=== PATIENT | male | born 1960 | race Caucasian/White ===

== ENCOUNTER 2020-10-17 07:35 | Outpatient (REF) | payer BC, SELFPAY ==
[2020-10-17 11:23] LABS: MANUAL DIFF FLAG NO
[2020-10-17 11:32] LABS: Basophils Absolute Auto 0.1 X10*3/uL (0.0-0.2); Eosinophils Absolute Auto 0.3 X10*3/uL (0.0-0.4); Hematocrit 46.4 % (42-52); Hemoglobin 15.2 g/dl (14.0-18.0); Imm Gran Abs Auto 0.01 X10*3/uL (0.00-0.03); Imm Gran Pct Auto 0.2 % (0.0-0.4); Lymphocytes Absolute Auto 1.8 X10*3/uL (1.2-4.9); Lymphocytes Percent Auto 34.7 % (20-40); Mean Corpuscular HGB Conc 32.8 g/dl (31.0-36.0); Mean Corpuscular Hemoglobin 28.7 pg (27.0-33.0); Mean Corpuscular Volume 87.7 fL (80-98); Mean Platelet Volume 10.6 fL (9.4-12.4); Monocytes Absolute Auto 0.5 X10*3/uL (0.1-1.2); Monocytes Percent Auto 9.3 % (2-11); Neutrophils Absolute Auto 2.5 X10*3/uL (2.0-8.3); Neutrophils Percent Auto 49.8 % (45-73); Platelet Count 199 X10*3/uL (160-400); Red Blood Count 5.29 X10*6/uL (4.60-5.80); Red Cell Distribution Width 12.5 % (11.0-16.0)
[2020-10-17 11:52] LABS: Alanine Aminotransferase 22 U/L (0-40); Albumin Level 4.2 g/dL (3.5-5.0); Alkaline Phosphatase 99 U/L (39-117); Anion Gap 13 (12-20); Aspartate Amino Transferase 14 U/L (5-37); Bilirubin Total 0.6 mg/dL (0.0-1.0); Blood Urea Nitrogen 22 mg/dL (9-16); Carbon Dioxide 27 mmol/L (22-29); Chloride 104 mmol/L (96-108); Cholesterol 225 mg/dL; Estimated Glomerular Filt Rate 57; Glucose Fasting 128 mg/dL (60-99); HDL Cholesterol 40 mg/dL; LDL Cholesterol Calculated 125 mg/dl; Potassium 4.4 mmol/l (3.3-5.1); Sodium 140 mmol/L (135-145); Total Protein 6.9 g/dL (6.5-8.0); Triglycerides 301 mg/dL
[2020-10-17 12:04] LABS: Thyroid Stimulating Hormone 1.52 uIU/mL (0.32-4.0); Vitamin D 25-OH Total 28.7 ng/mL (>30)
== END 2020-10-17 07:36 | disposition home or self-care (01) ==
LOC: HO.HMGCLDS 07:35
PROVIDERS: PCP Internal Medicine; Visit Provider Internal Medicine
DX: Z00.00 Encounter for general adult medical examination without abnormal findings (principal); I10 Essential (primary) hypertension; E78.00 Pure hypercholesterolemia, unspecified; E03.9 Hypothyroidism, unspecified; K21.9 Gastro-esophageal reflux disease without esophagitis; G43.109 Migraine with aura, not intractable, without status migrainosus; E55.9 Vitamin D deficiency, unspecified
CPT/HCPCS: 36415; 80053; 80061; 82306; 84443; 85025

== ENCOUNTER 2021-11-02 09:30 | Outpatient (REF) | payer BC, SELFPAY ==
[2021-11-02 09:59] LABS: MANUAL DIFF FLAG NO
[2021-11-02 11:54] LABS: Appearance Urine CLEAR; Color Urine YELLOW; Glucose Urine UA 250 MG/DL (NEG); Leukocyte Esterase Urine NEG (NEG); Nitrite Urine NEG (NEG); Specific Gravity - Urine >= 1.030 (1.005-1.025); Urine Blood NEG (NEG); Urine Ketones NEG (NEG); Urine Protein NEG (NEG-TRACE)
[2021-11-02 11:57] LABS: Basophils Percent Auto 0.9 % (0-2); Eosinophils Absolute Auto 0.2 X10*3/uL (0.0-0.4); Eosinophils Percent Auto 4.6 % (0-4); Hematocrit 45.7 % (42.0-52.0); Hemoglobin 15.2 g/dl (14.0-18.0); Imm Gran Abs Auto 0.01 X10*3/uL (0.00-0.03); Imm Gran Pct Auto 0.2 % (0.0-0.4); Lymphocytes Absolute Auto 1.5 X10*3/uL (1.2-4.9); Lymphocytes Percent Auto 32.1 % (20-40); Mean Corpuscular HGB Conc 33.3 g/dl (31.0-36.0); Mean Corpuscular Hemoglobin 28.8 pg (27.0-33.0); Mean Corpuscular Volume 86.6 fL (80.0-98.0); Mean Platelet Volume 10.5 fL (9.4-12.4); Monocytes Absolute Auto 0.4 X10*3/uL (0.1-1.2); Neutrophils Absolute Auto 2.4 x10*3/uL (2.0-8.3); Neutrophils Percent Auto 53.2 % (45-73); Platelet Count 215 X10*3/uL (160-400); Red Blood Count 5.28 X10*6/uL (4.60-5.80); Red Cell Distribution Width 12.4 % (11.0-16.0); White Blood Count 4.6 X10*3/uL (4.8-10.8)
[2021-11-02 12:20] LABS: Alanine Aminotransferase 21 U/L (0-40); Albumin Level 4.2 g/dL (3.5-5.0); Alkaline Phosphatase 115 U/L (39-117); Anion Gap 10 (12-20); Aspartate Amino Transferase 12 U/L (5-37); Bilirubin Total 0.9 mg/dL (0.0-1.0); Blood Urea Nitrogen 17 mg/dL (9-16); Calcium 9.4 mg/dL (8.4-10.2); Carbon Dioxide 30 mmol/L (22-29); Chloride 105 mmol/L (96-108); Cholesterol 221 mg/dL; Estimated Glomerular Filt Rate > 60; Glucose Fasting 146 mg/dL (60-99); HDL Cholesterol 37 mg/dL; LDL Cholesterol Calculated 150 mg/dl; Potassium 4.7 mmol/L (3.3-5.1); Sodium 140 mmol/L (135-145); Total Protein 6.7 g/dL (6.5-8.0); Triglycerides 172 mg/dL
[2021-11-02 12:44] LABS: PSA,Total (Free>4and<10) 0.22 ng/mL (0.00-4.00); Thyroid Stimulating Hormone 0.75 uIU/mL (0.32-4.0)
== END 2021-11-02 09:31 | disposition home or self-care (01) ==
LOC: HO.LAB 09:30
PROVIDERS: PCP Internal Medicine; Visit Provider Internal Medicine
DX: Z00.00 Encounter for general adult medical examination without abnormal findings (principal); I10 Essential (primary) hypertension; E03.9 Hypothyroidism, unspecified; E78.00 Pure hypercholesterolemia, unspecified; E55.9 Vitamin D deficiency, unspecified; K21.9 Gastro-esophageal reflux disease without esophagitis; G43.109 Migraine with aura, not intractable, without status migrainosus; Z12.5 Encounter for screening for malignant neoplasm of prostate
CPT/HCPCS: 36415; 80053; 80061; 81003; 82306; 84153; 84443; 85025

== ENCOUNTER 2022-05-31 10:02 | Outpatient (REF) | payer BC, SELFPAY ==
[2022-05-31 10:21] LABS: MANUAL DIFF FLAG NO
[2022-05-31 10:25] LABS: Basophils Percent Auto 0.9 % (0-2); Eosinophils Absolute Auto 0.3 X10*3/uL (0.0-0.4); Eosinophils Percent Auto 6.3 % (0-4); Hematocrit 43.2 % (42.0-52.0); Hemoglobin 14.7 g/dl (14.0-18.0); Imm Gran Abs Auto 0.01 X10*3/uL (0.00-0.03); Imm Gran Pct Auto 0.2 % (0.0-0.4); Lymphocytes Absolute Auto 1.2 X10*3/uL (1.2-4.9); Lymphocytes Percent Auto 27.1 % (20-40); Mean Corpuscular Hemoglobin 29.5 pg (27.0-33.0); Mean Corpuscular Volume 86.7 fL (80.0-98.0); Mean Platelet Volume 9.8 fL (9.4-12.4); Monocytes Absolute Auto 0.4 X10*3/uL (0.1-1.2); Monocytes Percent Auto 8.4 % (2-11); Neutrophils Absolute Auto 2.5 x10*3/uL (2.0-8.3); Neutrophils Percent Auto 57.1 % (45-73); Platelet Count 180 X10*3/uL (160-400); Red Blood Count 4.98 X10*6/uL (4.60-5.80); Red Cell Distribution Width 12.6 % (11.0-16.0); White Blood Count 4.4 X10*3/uL (4.8-10.8)
[2022-05-31 10:47] LABS: Estimated Average Glucose 131 mg/dL; Hemoglobin A1c % 6.2 %
[2022-05-31 10:53] LABS: Appearance Urine Clear; Color Urine Yellow; Glucose Urine UA Negative (Negative); Leukocyte Esterase Urine Negative (Negative); Nitrite Urine Negative (Negative); Urine Blood Negative (Negative); Urine Ketones Negative (Negative); Urine Protein Negative (Neg-Trace)
[2022-05-31 11:06] LABS: Alanine Aminotransferase 21 U/L (0-40); Albumin Level 4.2 g/dL (3.5-5.0); Alkaline Phosphatase 99 U/L (39-117); Anion Gap 15 (12-20); Aspartate Amino Transferase 17 U/L (5-37); Blood Urea Nitrogen 13 mg/dL (9-16); Calcium 8.9 mg/dL (8.4-10.2); Carbon Dioxide 27 mmol/L (22-29); Chloride 104 mmol/L (96-108); Cholesterol 192 mg/dL; Estimated Glomerular Filt Rate 60; Glucose Fasting 115 mg/dL (60-99); HDL Cholesterol 52 mg/dL; LDL Cholesterol Calculated 121 mg/dl; Potassium 4.2 mmol/L (3.3-5.1); Sodium 142 mmol/L (135-145); Total Protein 6.8 g/dL (6.5-8.0); Triglycerides 98 mg/dL
[2022-05-31 11:38] LABS: Creatinine Urine 52.39 mg/dL; Microalbumin Urine < 5.0 mg/L
[2022-05-31 12:05] LABS: Thyroid Stimulating Hormone 0.77 uIU/mL (0.32-4.0)
== END 2022-05-31 10:03 | disposition home or self-care (01) ==
LOC: HO.LAB 10:02
PROVIDERS: PCP Internal Medicine; Visit Provider Internal Medicine
DX: E74.39 Other disorders of intestinal carbohydrate absorption (principal); I10 Essential (primary) hypertension; E78.00 Pure hypercholesterolemia, unspecified; E03.9 Hypothyroidism, unspecified
CPT/HCPCS: 36415; 80053; 80061; 81003; 82043; 83036; 84443; 85025

== ENCOUNTER 2023-01-09 06:50 | Day surgery (SDC) | payer BC, SELFPAY ==
--- NOTE | 2023-01-08 09:49 | HO.ANESPROP2 ---
Documented by User: Adelina Oliveira NP 01/08/23 09:49 HPI - Anesthesia Eval Consult details Narrative: 62yo M for Colonoscopy PENDING SALE TO [facility] Past Medical History Medical History (Updated 01/08/23 @ 08:10 by Pao Chin) Abdominal pain Elevated cholesterol GERD (gastroesophageal reflux disease) Hypertension Hypothyroidism Migraine headache Plantar fasciitis Tubular adenoma Surgical History Surgical History (Updated 01/08/23 @ 08:10 by Pao Chin) H/O arthroscopy of knee H/O colonoscopy H/O endoscopy Social History Social History Patient Tobacco Use Status: Former Tobacco user Use of substances other than those prescribed or required for medical reasons: No Are you DNR?: No Advance Directives: No Advance Directives Information Provided: Yes Recently lost weight without trying: No Nutrition Risks: No Nutritional Risk Meds Allergies Allergy/AdvReac Type Severity Reaction Status Date / Time oxycodone [OXYCODONE] Allergy Unknown GI UPSET, Verified 01/09/23 07:18 stomach upset codeine AdvReac Unknown Verified 01/09/23 07:18 Home Medications Medication Instructions Recorded Confirmed Last Taken Type amitriptyline-chlordiazepoxide 1 tab PO DAILY 01/08/23 01/08/23 Unknown History 12.5 mg-5 mg tablet atorvastatin 40 mg tablet 40 mg PO DAILY 01/08/23 01/08/23 Unknown History levothyroxine 25 mcg tablet 25 mcg PO DAILY 01/08/23 01/08/23 Unknown History lisinopril 40 mg tablet 40 mg PO DAILY 01/08/23 01/08/23 Unknown History omeprazole 40 mg capsule,delayed 40 mg PO BID 01/08/23 01/08/23 Unknown History release propranolol 40 mg tablet 40 mg PO BID 01/08/23 01/08/23 Unknown History Exam Exam Date and Time: January 08, 2023 0949 Assessment and Plan Assessment Anesthesia Assessment: Chart Reviewed Documented by User: Gay Magaña MD 01/09/23 07:49 PENDING SALE TO [facility] Past Medical History Medical History (Updated 01/08/23 @ 08:10 by Pao Chin) Abdominal pain Elevated cholesterol GERD (gastroesophageal reflux disease) Hypertension Hypothyroidism Migraine headache Plantar fasciitis Tubular adenoma Family History Family history of problems with anesthesia: No Surgical History Surgical History (Updated 01/08/23 @ 08:10 by Pao Chin) H/O arthroscopy of knee H/O colonoscopy H/O endoscopy History of Problems with Anesthesia: No Social History Social History Patient Tobacco Use Status: Former Tobacco user Use of substances other than those prescribed or required for medical reasons: No Are you DNR?: No Advance Directives: No Advance Directives Information Provided: Yes Recently lost weight without trying: No Nutrition Risks: No Nutritional Risk Meds Allergies Allergy/AdvReac Type Severity Reaction Status Date / Time oxycodone [OXYCODONE] Allergy Unknown GI UPSET, Verified 01/09/23 07:18 stomach upset codeine AdvReac Unknown Verified 01/09/23 07:18 Home Medications Medication Instructions Recorded Confirmed Last Taken Type amitriptyline-chlordiazepoxide 1 tab PO DAILY 01/08/23 01/08/23 Unknown History 12.5 mg-5 mg tablet atorvastatin 40 mg tablet 40 mg PO DAILY 01/08/23 01/08/23 Unknown History levothyroxine 25 mcg tablet 25 mcg PO DAILY 01/08/23 01/08/23 Unknown History lisinopril 40 mg tablet 40 mg PO DAILY 01/08/23 01/08/23 Unknown History omeprazole 40 mg capsule,delayed 40 mg PO BID 01/08/23 01/08/23 Unknown History release propranolol 40 mg tablet 40 mg PO BID 01/08/23 01/08/23 Unknown History Exam Airway Mallampati Class: II TM Dist: >3cm Neck ROM: Full Heart: rrr Lungs: cta Assessment and Plan Assessment Anesthesia Assessment: Anesthesia Plan Discussed Final Anesthetic Review Family History of Problems with Anesthesia: No History of Problems with Anesthesia: No NPO: Yes ASA Class: II Final Preanesthetic Review: No Changes in Pt Med Stat, Meds/Allgs Chart Reviewed, Consent Obtained/Reviewed and Anes Risks/Benef Reviewed Patient Risk: Low Procedure Risk: Low Anesthetic Plan Anesthetic Plan: MAC: Disposition: Standard PACU
[2023-01-09 07:00] VITALS: BMI 29.5
[2023-01-09 07:11] VITALS: BP 133/89; PULSE 69; RESP 16; TEMP 36.2; O2SAT 96
[2023-01-09] MEDS: Lactated Ringers 1,000 ML 100 ML IVCONT (07:18)
--- NOTE | 2023-01-09 08:12 | MHC.SHP ---
Pre-Procedural Eval Section A Date of Service: 01/09/23 The patient is an INPATIENT: No Changes since office visit: Yes Cold of Flu in the past 2 weeks The History & Physical has been completed within 30 days and I have reviewed it.: No Section B Chief Complaint: screening Details of Present Illness: see H&P no changes Relevant Family History (Specify if Yes): No Relevant Social History: None Present Medications: None Medical History: No relevant PMH History of Previous Operations: No relevant previous surgery Allergies: Allergies Allergy/AdvReac Type Severity Reaction Status Date / Time oxycodone [OXYCODONE] Allergy Unknown GI UPSET, Verified 01/09/23 07:18 stomach upset codeine AdvReac Unknown Verified 01/09/23 07:18 Review of Systems Sugical H&P ROS: Negative: Constitution, Cardiovascular, Respiratory, Neurological, Psychiatric, Hem-Onc, Allergic/Immunologic, Gastrointestinal, Genitourinary, Musculoskeletal, Integumentary, Endocrine and Eyes/Ears/Nose/Throat Exam Surgical H&P Exam: Normal: HEENT, Normal: Heart, Normal: Lungs, Normal: Extremities, Normal: Abdomen, Normal: Skin and Normal: Neurological Plan Diagnosis/Plan: Unchanged I have reviewed the history and physical and performed a pertinent physical examination on my patient. No changes have occurred unless specified. Time Spent With Patient Time: Total time managing care of this patient today ____ minutes.
--- NOTE | 2023-01-09 08:45 | PM.OP ---
Brief Operative Note Date of Service: 01/09/23 Pre-op diagnosis: screening Post-op diagnosis: same Procedure: colonoscopy Surgeon: Daniel Barnett Was an Lead Setter used for this Procedure?: No Estimated blood loss (mL): 0 Pathology: none sent Condition: stable Disposition: PACU
[2023-01-09 08:46] VITALS: BP 99/59; PULSE 72; RESP 17; TEMP 36.1; O2SAT 97
[2023-01-09 09:01] VITALS: BP 119/79; PULSE 63; RESP 18; TEMP 36.6; O2SAT 98
--- NOTE | 2023-01-09 23:41 | OP_ITS ---
DATE OF SERVICE: 01/09/2023 SURGEON: Daniel Barnett MD INDICATIONS: Colon cancer screening. PREOPERATIVE DIAGNOSIS: POSTOPERATIVE DIAGNOSIS: PROCEDURE PERFORMED: Colonoscopy to the terminal ileum. ESTIMATED BLOOD LOSS: COMPLICATIONS: ANESTHESIA: Monitored anesthesia care. ASSISTANTS: SPECIMENS: DESCRIPTION OF PROCEDURE: A history and physical was performed. The risks and benefits of the procedure were explained to the patient. Informed consent was obtained. The patient was placed in the left lateral decubitus position. A digital rectal exam was performed and was found to be normal. The Olympus pediatric video colonoscope was introduced into the rectum and advanced to the cecum without difficulty. The cecum was identified by transillumination, palpation, and identification of ileocecal valve. Examination was performed. The scope was removed. He tolerated the procedure well and was returned to the recovery area in stable condition. FINDINGS: The terminal ileum was briefly examined and appeared normal. The quality of the prep was good. There was very minimal sigmoid diverticulosis. Retroflexed examination showed moderate-sized internal hemorrhoids. IMPRESSION: Normal screening colonoscopy. RECOMMENDATION: 1. Follow up as needed. 2. Repeat colonoscopy is recommended in 10 years for average risk individuals. MD JETT Krueger/GILSONL / [id number]
== END 2023-01-09 09:30 | disposition home or self-care (01) ==
PROVIDERS: PCP Internal Medicine; Visit Provider Internal Medicine Gastroenterology
PROC: 0DJD8ZZ Inspection of Lower Intestinal Tract, Via Natural or Artificial Opening Endoscopic (ICD-10-PCS; CPT 45378; principal; 2023-01-09 08:10)
DX: Z12.11 Encounter for screening for malignant neoplasm of colon (principal); Z86.010 Personal history of colon polyps; K57.30 Diverticulosis of large intestine without perforation or abscess without bleeding; K64.8 Other hemorrhoids; K21.9 Gastro-esophageal reflux disease without esophagitis; I10 Essential (primary) hypertension; E78.00 Pure hypercholesterolemia, unspecified; E03.9 Hypothyroidism, unspecified; G43.909 Migraine, unspecified, not intractable, without status migrainosus; Z79.899 Other long term (current) drug therapy; Z88.8 Allergy status to other drugs, medicaments and biological substances; Z87.891 Personal history of nicotine dependence
CPT/HCPCS: 45378

== ENCOUNTER 2024-08-17 10:06 | Outpatient (REF) | payer BC, SELFPAY ==
[2024-08-17 13:11] LABS: MANUAL DIFF FLAG NO
[2024-08-17 13:30] LABS: Basophils Absolute Auto 0.1 X10*3/uL (0.0-0.2); Basophils Percent Auto 1.2 % (0-2); Eosinophils Absolute Auto 0.2 X10*3/uL (0.0-0.4); Eosinophils Percent Auto 4.3 % (0-4); Hemoglobin 14.9 g/dl (14.0-18.0); Imm Gran Abs Auto 0.01 X10*3/uL (0.00-0.03); Imm Gran Pct Auto 0.2 % (0.0-0.4); Lymphocytes Absolute Auto 1.6 X10*3/uL (1.2-4.9); Lymphocytes Percent Auto 31.4 % (20-40); Mean Corpuscular HGB Conc 33.9 g/dl (31.0-36.0); Mean Corpuscular Hemoglobin 28.9 pg (27.0-33.0); Mean Corpuscular Volume 85.4 fL (80.0-98.0); Mean Platelet Volume 10.4 fL (9.4-12.4); Monocytes Absolute Auto 0.5 X10*3/uL (0.1-1.2); Monocytes Percent Auto 9.1 % (2-11); Neutrophils Absolute Auto 2.8 x10*3/uL (2.0-8.3); Neutrophils Percent Auto 53.8 % (45-73); Platelet Count 192 X10*3/uL (160-400); Red Blood Count 5.15 X10*6/uL (4.60-5.80); Red Cell Distribution Width 12.2 % (11.0-16.0); White Blood Count 5.2 X10*3/uL (4.8-10.8)
[2024-08-17 13:59] LABS: Alanine Aminotransferase 21 U/L (0-40); Alkaline Phosphatase 87 U/L (39-117); Anion Gap 8 (12-20); Aspartate Amino Transferase 16 U/L (5-37); Bilirubin Total 0.8 mg/dL (0.0-1.0); Blood Urea Nitrogen 20 mg/dL (9-16); Calcium 8.9 mg/dL (8.4-10.2); Carbon Dioxide 33 mmol/L (22-29); Chloride 103 mmol/L (96-108); Cholesterol 193 mg/dL (<200); Estimated Glomerular Filt Rate > 60; Glucose Fasting 160 mg/dL (60-99); HDL Cholesterol 38 mg/dL (>40); LDL Cholesterol Calculated 118 mg/dL (<100); Potassium 4.4 mmol/L (3.3-5.1); Sodium 140 mmol/L (135-145); Total Protein 6.6 g/dL (6.5-8.0); Triglycerides 185 mg/dL (<150)
[2024-08-17 14:02] LABS: PSA,Total (Free>4and<10) 0.33 ng/mL (0.00-4.00)
[2024-08-17 14:29] LABS: Thyroid Stimulating Hormone 1.48 uIU/mL (0.32-4.0); Vitamin D 25-OH Total 41.5 ng/mL (>30)
== END 2024-08-17 10:07 | disposition home or self-care (01) ==
LOC: HO.HMGCLDS 10:06
PROVIDERS: PCP Internal Medicine; Visit Provider Internal Medicine
DX: I10 Essential (primary) hypertension (principal); E78.00 Pure hypercholesterolemia, unspecified; E03.9 Hypothyroidism, unspecified; K21.9 Gastro-esophageal reflux disease without esophagitis; G43.109 Migraine with aura, not intractable, without status migrainosus; E55.9 Vitamin D deficiency, unspecified; Z12.5 Encounter for screening for malignant neoplasm of prostate
CPT/HCPCS: 36415; 80053; 80061; 82306; 84153; 84443; 85025

== ENCOUNTER 2024-11-23 09:20 | Outpatient (AMB) | payer BC, SELFPAY ==
--- NOTE | 2024-11-23 09:28 | MHC.PC.OV ---
Vital Signs 11/23/24 09:34 Height 5 ft 7.75 in Weight 199 lb BMI 30.5 BP 118/64 Blood Pressure Location Rt brachial Pulse 70 Pulse Source Pulse Oximeter Temp 97.0 F Pulse Oximetry (%) 96 Intake Visit Reasons: 3 month follow up Intake Note: no other issues Allergies oxycodone [OXYCODONE] Allergy (Unknown, Verified 11/23/24 10:05) GI UPSET, stomach upset codeine Adverse Reaction (Verified 11/23/24 10:05) Unknown Medication List - Last Reconciled 11/23/24 by Stephanie Slater PA-C aspirin (Adult Low Dose Aspirin) 81 mg PO DAILY atorvastatin 40 mg PO DAILY cholecalciferol (vitamin D3) 50 mcg PO DAILY divalproex 250 mg PO BID levothyroxine 25 mcg PO DAILY lisinopril 40 mg PO DAILY omeprazole 40 mg PO BID propranolol 40 mg PO BID rizatriptan 10 mg PO Q2-4H PRN verapamil 40 mg PO BID PFSH Medical History (Updated 11/23/24 @ 10:12 by Stephanie Slater PA-C) Obesity (BMI 30.0-34.9) Prediabetes Peyronie's disease Vitamin D deficiency Onychomycosis Carpal tunnel syndrome Deviated septum Mild hypercholesterolemia Abdominal pain GERD (gastroesophageal reflux disease) Plantar fasciitis Tubular adenoma Migraine headache Hypothyroidism Elevated cholesterol Hypertension Surgical History H/O arthroscopy of knee H/O endoscopy H/O colonoscopy (~01/09/23) Social History Patient Tobacco Use Status: Former Tobacco user Physical exam (Primary Care) Vital Signs: Last Vital Signs Temp 97.0 F 11/23/24 09:34 Pulse 70 11/23/24 09:34 BP 118/64 11/23/24 09:34 Pulse Ox 96 11/23/24 09:34 BP Goal 130/80 at Goal today BMI result Body Mass Index 30.5 BMI Assessment/Plan discussion: High BMI High, discussed plan: lifestyle, weight reduction, dietary, physical activity and alcohol moderation Tobacco/Smoking Status: Tobacco use Status Patient Tobacco Use Status Former Tobacco user 11/23/24 09:37 Coding Level of Care Code New Pt Level 4 (20999) Complex EM visit Add On G2211 Diagnoses Hypertension I10 Hypothyroidism E03.9 Mild hypercholesterolemia E78.00 Migraine headache G43.909 GERD (gastroesophageal reflux disease) K21.9 Vitamin D deficiency E55.9 Prediabetes R73.03 Obesity (BMI 30.0-34.9) E66.811 Assessment & Plan Assessment & Plan (1) Hypertension: Code(s): I10 - Essential (primary) hypertension Category: Medical Plan: Patient currently on baby aspirin 81 mg daily, atorvastatin 40 mg daily, lisinopril 40 mg daily, propranolol 40 mg p.o. b.i.d., verapamil 40 mg p.o. PID. BP Goal 130/80 at goal today. Will continue current regimen. Condition is chronic and stable continue to monitor. (2) Hypothyroidism: Code(s): E03.9 - Hypothyroidism, unspecified Category: Medical Plan: Patient currently on levothyroxine 125 mcg daily. Last TSH level on 08/17/2024 was normal range. Condition is chronic and stable continue to monitor. (3) Mild hypercholesterolemia: Code(s): E78.00 - Pure hypercholesterolemia, unspecified Category: Medical Plan: Patient currently on atorvastatin 40 mg. Goal LDL is 100 at this time. Last LDL on 08/17/2024 was 118. Patient declined increase in his atorvastatin reports that he will improve his diet and exercise regimen. At next visit if LDL remains to be of 100 will increase his atorvastatin at that time. Patient agreeable to this. Condition is chronic and stable continue to monitor. (4) Migraine headache: Code(s): G43.909 - Migraine, unspecified, not intractable, without status migrainosus Category: Medical Plan: Patient currently being followed by Dr. Godinez at [facility] neurologist. Being treated with p.r.n. Rizatriptan. Patient currently on Divalproex 250 mg p.o. b.i.d.. Patient also on propranolol 40 mg p.o. b.i.d.. Condition is chronic and stable continue to monitor. (5) GERD (gastroesophageal reflux disease): Code(s): K21.9 - Gastro-esophageal reflux disease without esophagitis Category: Medical Plan: Patient currently on omeprazole 40 mg b.i.d.. Condition is chronic and stable continue to monitor. (6) Vitamin D deficiency: Code(s): E55.9 - Vitamin D deficiency, unspecified Category: Medical Plan: Patient with a history of vitamin-D deficiency on 08/17/2024 vitamin-D level 41.5 in normal range. Patient to continue current regimen. Condition is chronic and stable continue to monitor. (7) Prediabetes: Code(s): R73.03 - Prediabetes Category: Medical Plan: Patient's A1c level 6.2 on 05/31/2022. Has not been repeated. Labs ordered today for patient to have done before his next appointment to assess diabetes. Patient reports he will improve his diet and exercise regimen. Condition is chronic and stable will continue to monitor. (8) Obesity (BMI 30.0-34.9): Code(s): E66.811 - Obesity, class 1 Category: Medical Plan: Patient will improve his diet and exercise regimen. Condition is chronic and stable continue to monitor. Plan Plan The patient will maintain his current regimen of prescribed medications, as essential hypertension, hyperlipidemia, and thyroid conditions are adequately controlled. Additional management for migraines includes adherence to Divalproex and PRN use of rizatriptan. Regular dietary adjustments have been suggested to manage elevated triglycerides and maintain controlled glucose levels, given prediabetic status. A detailed lab workup, including assessments for inflammation, renal and liver function, hemoglobin A1c, electrolyte balance, and vitamin levels, will be scheduled before the next follow-up. He is advised to remain vigilant regarding symptoms indicative of fluctuating glucose levels and seek early intervention if they develop. A six-month follow-up will focus on the outcomes of dietary changes and further adjustment of therapeutic interventions if needed. Orders: Orders C Reactive Protein Today Z00.00 - Encounter for general adult medical examination without abnormal findings Lipid Panel Today Z00.00 - Encounter for general adult medical examination without abnormal findings Liver Panel Today Z00.00 - Encounter for general adult medical examination without abnormal findings Magnesium Today Z00.00 - Encounter for general adult medical examination without abnormal findings Vitamin D 25-OH Total Today Z00.00 - Encounter for general adult medical examination without abnormal findings Complete Blood Count Auto Diff Today Z00.00 - Encounter for general adult medical examination without abnormal findings Comprehensive [place]. Panel Fast Today Z00.00 - Encounter for general adult medical examination without abnormal findings Hemoglobin A1c Today Z00.00 - Encounter for general adult medical examination without abnormal findings Vitamin B1 Today Z00.00 - Encounter for general adult medical examination without abnormal findings TSH reflex Free T4 Today Z00.00 - Encounter for general adult medical examination without abnormal findings Vitamin B12 and Folate Today Z00.00 - Encounter for general adult medical examination without abnormal findings Patient Instructions: Patient Instructions - Continue current medication regimen as prescribed. - Schedule and complete recommended blood work, fasting for 12 hours prior to testing. - Focus on dietary management to reduce triglyceride levels, specifically decreasing sugary and fatty foods. - Monitor for symptoms of elevated glucose such as increased thirst or frequent urination; contact the office for earlier assessment if these occur. - Return for a six-month follow-up or discuss telehealth alternatives if necessary. - Maintain awareness of migraine triggers and use prescribed triptan PRN. - Maintain a log of blood pressure readings to monitor control. Scribe Plan - Not visible on output: History of Present Illness The patient is a 64-year-old male presenting for a six-month follow-up appointment. His medical history is significant for essential hypertension, hyperlipidemia, vitamin D deficiency, migraines, hypothyroidism, GERD, and prediabetes. Medications include aspirin, atorvastatin, levothyroxine, omeprazole, propranolol, and Divalproex. He reports that the propranolol has been ineffective for migraines, although prescribed for both hypertension and migraine prophylaxis. The patient takes rizatriptan medication as needed for migraines. Recent labs indicate fasting glucose at 160 mg/dL and triglyceride levels are borderline elevated. He underwent a colonoscopy in 2022 with no significant findings and has normal PSA and thyroid function tests. The patient denies sleep disturbances or signs of sleep apnea and has stable blood pressure under current antihypertensive therapy. Review of Systems - Constitutional: Denies significant fatigue on awakening. - Genitourinary: Denies difficulty urinating, denies feeling of incomplete bladder emptying. - Musculoskeletal: Reports chronic knee pain. - Endocrine: Denies excessive thirst. Physical Exam Appearance: Alert. Oriented X3. No acute distress. Head: Normal external exam. Normocephalic. Atraumatic. Eyes: Pupils are equal, round, and reactive to light. Extraocular movements intact. Conjunctiva and sclera normal. Eyelids normal. Ears: External auditory canal normal. Tympanic membranes normal. Throat: Pharynx normal. Uvula midline. Moist mucous membranes. Neck: Normal inspection. Neck supple. Full range of motion. No adenopathy. Thyroid Normal. No meningeal signs. No neck mass noted. Cardiovascular: Normal heart rate and rhythm. Heart sound normal. No murmurs noted. Pulses normal throughout. Respiratory: No respiratory distress. Painless inspiration. Breath sounds normal. No wheezes/rales/rhonchi noted. Chest nontender. No accessory muscle usage noted or decreased air movement noted. Abdomen: Soft and nontender. Bowel sounds normal in all 4 quadrants. No distention noted. No organomegaly noted. No visible injury noted. Back: No costovertebral angle tenderness. Full range of motion noted. Skin: Skin warm and dry. Normal skin color. Normal skin turgor. No rashes/lesions/lacerations noted. Extremities: No lower extremity edema. Extremities exhibit normal range of motion. Extremities nontender. Chronic knee pain noted. Neuro: Oriented X 3. No motor deficit. No sensory deficit. Reflexes normal. Results - Labs: - Fasting Glucose: 160 mg/dL (2023) - A1c: 6.2% (2021) - Total Cholesterol: 193 mg/dL (2023) Patient was informed and verbally consented to the use of an ambient scribe for clinic note documentation during this visit. Discussion Notes I explained to the patient the importance of monitoring his blood glucose and lipid levels due to his prediabetic status and marginally elevated triglycerides. We discussed dietary interventions as the primary strategy for managing these conditions, and I emphasized the potential risks of progression to diabetes if left unaddressed. I assured the patient that his cholesterol levels are within target range while on atorvastatin, but further improvement can be achieved via lifestyle modifications. The importance of fasting before the next round of blood testing was underscored to ensure accurate results. I clarified the role of his medications, specifically highlighting the multi-purpose use of propranolol for both hypertension and migraines, albeit acknowledging the limited effect in migraine relief, and encouraged adherence to his migraine PRN medication. Follow-up options remain flexible, including the possibility of telehealth visits, should direct clinic appointments be challenging.
[2024-11-23 09:34] VITALS: BP 118/64; PULSE 70; TEMP 36.1; O2SAT 96; BMI 30.5
--- OUTSIDE RECORDS SUMMARY | 2024-11-23 10:30 | XMS_ITS | Patient Health Record ---
Author Organization Serge Harvey DO, FAC Address [address] [place] [id number] Care Team Providers Care Shrinker Name Role Phone WesSerge kasper Primary Care Provider [phone] ALLERGIES No Known Allergies RESULTS Component Value Reference Range Notes PSA,Total (Free>4and<10) Reviewed date:08/17/2024 02:34:59 PM Interpretation:Normal Performing Lab:[facility], [address] [place] [phone] Notes/Report: PSA,Total (Free>4and<10) 0.33 0.00-4.00 ng/mL A Free PSA was not performed: The percentage of Free PSA can be used to enhance the differentiation of prostate cancer from benign prostatic disease in subjects whose PSA levels are between 4.0 and 10.0 ng/mL. For subjects whose PSA levels are below 4.0 or above 10.0 ng/mL, the risk of prostate cancer is determined on the basis of the PSA alone. Therefore the % Free PSA is recommended only for those subjects whose PSA levels are between 4.0 and 10.0 ng/mL. PSA methodology: M[facility] [employer] i Chemiluminescent Microparticle Immunoassay (CMIA) Complete Blood Count Auto Di ff Reviewed date:08/17/2024 01:50:55 PM Interpretation:Normal Performing Lab:[facility], [address] [place] [phone] Notes/Report: White Blood Count 5.2 4.8-10.8 X10*3/uL Red Blood Count 5.15 4.60-5.80 X10*6/uL Hemoglobin 14.9 14.0-18.0 g/dl Hematocrit 44.0 42.0-52.0 % Mean Corpuscular Volume 85.4 80.0-98.0 fL Mean Corpuscular Hemoglobin 28.9 27.0-33.0 pg Mean Corpuscular HGB Conc 33.9 31.0-36.0 g/dl Red Cell Distribution Width 12.2 11.0-16.0 % Platelet Count 192 160-400 X10*3/uL Mean Platelet Volume 10.4 9.4-12.4 fL Neutrophils Percent Auto 53.8 45-73 % Imm Gran Pct Auto 0.2 0.0-0.4 % Lymphocytes Percent Auto 31.4 20-40 % Monocytes Percent Auto 9.1 2-11 % Eosinophils Percent Auto 4.3 0-4 % Basophils Percent Auto 1.2 0-2 % NRBC Pct Auto 0.0 0.0-0.2 /100WBC Neutrophils Absolute Auto 2.8 2.0-8.3 x10*3/u L Imm Gran Abs Auto 0.01 0.00-0.03 X10*3/uL Lymphocytes Absolute Auto 1.6 1.2-4.9 X10*3/u L Monocytes Absolute Auto 0.5 0.1-1.2 X10*3/uL Eosinophils Absolute Auto 0.2 0.0-0.4 X10*3/u L Basophils Absolute Auto 0.1 0.0-0.2 X10*3/uL NRBC Abs Auto 0.000 0.0-0.012 X10*3/uL Comprehensive [place]. Panel Fa st Reviewed date:08/17/2024 04:50:49 PM Interpretation:Abnormal Performing Lab:[facility], [address] [place] [phone] Notes/Report: Sodium 140 135-145 mmol/L Potassium 4.4 3.3-5.1 mmol/L Chloride 103 96-108 mmol/L Carbon Dioxide 33 22-29 mmol/L Anion Gap 8 12-20 Blood Urea Nitrogen 20 9-16 mg/dL Creatinine 1.01 0.5-1.4 mg/dL Estimated Glomerular Filt Rate > 60 Chronic Kidney Disease: Estimated GFR < 60 mL/min/1.73m2 Severe Kidney Disease: Estimated GFR < 15 mL/min/1.73m2 Glucose Fasting 160 60-99 mg/dL A fasting glucose of 126 mg/dl or greater on more than one occasion is considered diagnostic of diabetes. Calcium 8.9 8.4-10.2 mg/dL Bilirubin Total 0.8 0.0-1.0 mg/dL Aspartate Amino Transferase 16 5-37 U/L Alanine Aminotransferase 21 0-40 U/L Total Protein 6.6 6.5-8.0 g/dL Albumin Level 4.0 3.5-5.0 g/dL Alkaline Phosphatase 87 39-117 U/L Lipid Panel Reviewed date:08/17/2024 02:36:10 PM Interpretation:Abnormal Performing Lab:[facility], [address] [place] [phone] Notes/Report: Triglycerides 185 <150 mg/dL Desirable Triglyceride: less than 150 mg/dL Borderline High Triglyceride 150-199 mg/dL High Triglyceride: 200-499 mg/dL Very High Triglyceride: greater than or equal to 5OO mg/dL Cholesterol 193 <200 mg/dL Desirable Cholesterol: less than 200 mg/dL Borderline High Cholesterol: 200-239 mg/dL High Cholesterol: greater than 239 mg/dL LDL Cholesterol Calculated 118 <100 mg/dL Desirable LDL: less than 100 mg/dL Near Optimal/Above Optimal LDL: 110-129 mg/dL Borderline High LDL: 130-159 mg/dL High LDL: 160-189 mg/dL Very High LDL: greater than or equal to 190 mg/dL HDL Cholesterol 38 >40 mg/dL Desirable HDL: greater than 40 mg/dL Note: This HDL assay may give artificially low results in patients with liver disease. Vitamin D 25-OH Total Reviewed date:08/17/2024 02:35:17 PM Interpretation:Normal Performing Lab:[facility], [address] [place] [phone] Notes/Report: Vitamin D 25-OH Total 41.5 >30 ng/mL Health Based Reference Values* < 20 ng/mL Deficient 20-30 ng/mL Insufficient > 30 ng/mL Sufficient *Dayo MCBRIDE. N Engl J Med. 2007;357:266-280 Care must be taken in interpreting Vitamin D results from different laboratories and methodologies. Published data demonstrated that results from patients undergoing hemodialysis may show a negative bias when tested with various automated 25-OH vitamin D assays when compared to LC-MS/MS. When testing samples from patients whose predominant form of Vitamin D is Vitamin D2, such as patients receiving Vitamin D2 supplementation, results that are subtherapeutic should be confirmed with another method such as LC-MS/MS. Thyroid Stimulating Hormone Reviewed date:08/17/2024 02:35:48 PM Interpretation:Normal Performing Lab:[facility], [address] [place] [phone] Notes/Report: Thyroid Stimulating Hormone 1.48 0.32-4.0 uIU/ mL TSH 3rd Generation ([facility]) REASON FOR REFERRAL No Information MEDICATIONS Medication SIG (Take, Route, Frequency, Duration) Notes Start Date End Date Status Aspirin Adult Low Dose 81 MG 1 tablet Or ally Once a day Active Atorvastatin Calcium 40 MG 1 tablet Oral ly Once a day Active Verapamil HCl 40 MG 1 tablet Orally Twic e a day Active Topamax 50 MG 1 tablet at bedtime Orally Once a day Active Omeprazole 20 MG 1 capsule Orally Onc e a day 10/05/2012 Active Levothyroxine Sodium 25 MCG 1 tablet in the morning on an empty stomach Orally Once a day Active Multivitamins 1 tablet Orally Once a day Active Lisinopril 40 MG 1 tablet Orally Once a day for 90 days Active Vitamin D 2000 UNIT 1 capsule Orally Onc e a day 09/11/2015 Active Rizatriptan Benzoate 10 MG 1 tablet as n eeded Orally Once a day Active IMMUNIZATIONS Vaccine Route Administration Date Status Comme nts Influenza Unknown 07/15/2011 Administered Influenza Unknown 06/07/2014 Administered Influenza Unknown 06/25/2015 Administered Influenza Quad IM Intramuscular 09/12/2016 Administered SOCIAL HISTORY Tobacco Use: Social History Observation Description Date Details (start date - stop date) Former Smoker NA - NA Sex Assigned At : Social History Observation Description Sex Assigned At Unknown Tobacco Use/Smoking Question Answer Notes Patient is a former smoker How long has it been since y ou last smoked? > 10 years Additional Findings: Tobacco Non-User Fo rmer smoker, currently using no form of tobacco Alcohol Screen Question Answer Notes Did you have a drink contain ing alcohol in the past year? Yes How often did you have a dri nk containing alcohol in the past year? Monthly or less (1 point) How many drinks did you have on a typical day when you were drinking in the past year? 1 or 2 drinks (0 point) How often did you have 6 or more drinks on one occasion in the past year? Never (0 point) Points 1 Interpretation Negative PROBLEMS Problem Type ICD Code Onset Dates Problem Status W/U Status Risk SNOMED Code Notes Problem Vitamin D deficiency (E55.9) Active confirmed 51072774 Problem Essential hypertensi on (I10) Active confirmed 70899162 Problem Gastroesophageal ref lux disease without esophagitis (K21.9) Active confirmed 190037428 Problem Acquired hypothyroid ism (E03.9) Active confirmed 147052660 Problem Migraine with aura a nd without status migrainosus, not intractable (G43.109) Active confirmed 5893474 Problem Hypercholesterolemia (E78.00) Active confirmed 64324397 Problem Penile pain (N48.89) Active confirmed 2 05479220 Problem Glucose intolerance (E74.39) Active confirmed 98210426 VITAL SIGNS Height 68.75 in 08/12/2024 Encounters Encounter Location Date Provider Diagnosis Serge Harvey DO, [address] [id number] 11/23/2024 Serge Harvey DO, [address] [id number] 08/12/2024 Serge Harvey Essential hypertensi on I10 ; Hypercholesterolemia E78.00 ; Acquired hypothyroidism E03.9 ; Gastroesophageal reflux disease without esophagitis K21.9 ; Migraine with aura and without status migrainosus, not intractable G43.109 ; Vitamin D deficiency E55.9 and Prostate cancer screening Z12.5 ASSESSMENTS Encounter Date Diagnosis Assessment Notes Treatment Notes Treatment Clinical Notes 08/12/2024 Essential hypertensi on (ICD-10 - I10) 08/12/2024 Hypercholesterolemia (ICD-10 - E78.00) 08/12/2024 Acquired hypothyroid ism (ICD-10 - E03.9) 08/12/2024 Gastroesophageal ref lux disease without esophagitis (ICD-10 - K21.9) 08/12/2024 Migraine with aura a nd without status migrainosus, not intractable (ICD-10 - G43.109) 08/12/2024 Vitamin D deficiency (ICD-10 - E55.9) 08/12/2024 Prostate cancer scre ening (ICD-10 - Z12.5) PLAN OF TREATMENT No Information Insurance Providers Payer Name Payer Address Payer Phone Subscriber Number Group Number Insured Name Patient Relationship to Insured Coverage Start Date Coverage End Date [employer] BLUE CARD [address] [place], [place] [id number] Narayan Faulkner Self - patient is the insured MEDICAL (GENERAL) HISTORY Medical History History ICD Code hypertension hypercholesterolemia hypothyroidism migraine headaches gastroesophageal reflux disease (GERD) allergies deviated septum carpal tunnel syndrome low back pain onychomycosis vitamin D deficiency tubular adenoma, 2011 Peyronie's Disease Surgical History Surgery Date(Month/Year) arthroscopic knee surgery, right knee, f or repair of a torn meniscus tonsillectomy secondary to a tonsillar a bcess 1993 epidermal cyst resection, right lower ba ck santana plication
--- OUTSIDE RECORDS SUMMARY | 2024-11-23 10:30 | XMS_ITS ---
Author Organization [facility] Address [address] [place] [phone] Care Team Providers Care Facility Maintenance Helper Name Role Phone Wes (RETIRED) Serge TSAI Primary Care Provid er Unavailable Daniel August Jr Unavailable [phone] REASON FOR VISIT PLEASE REFILL RX FOR DR AUGUST'S PT MEDICATIONS Medication SIG (Take, Route, Fr equency, Duration) Notes Start Date End Date Status Omeprazole 40 MG 60 Orally 1 PO Twice a Day for 30 day(s) 05/10/2024 Active Encounters Encounter Location Date Provider Diagnosis [facility] [address] [place] [phone] 05/10/2024 Daniel August Jr PLAN OF TREATMENT Medication Medication Name Sig Start Date Stop Date Notes Omeprazole 40 MG 60 Orally 1 PO Twice a Day for 30 day(s) 05/10/2024
--- OUTSIDE RECORDS SUMMARY | 2024-11-23 10:30 | XMS_ITS | Continuity of Care Document ---
Author Name [facility] Organization [facility] Care Team Providers Care Box Covering Machine Operator Name Role Phone [facility] Unavailable Unavailable Problems Combined list of problems [...] Site Reaction Lot Number CVX Code Drug Rn Clinical Documentation Status Comments Source FLU,3 YRS (HISTORICAL) 2011 [...] t ed [place] [facility] Encounters Combined list of: 1) Encounters from [facility] facilities going backup to the last 18 months, not all [place] inpatient encounters are included; 2) Encounters from the Department of Defense facilities going backup to 280 months. Location Location Details Encounter Type Encounter Number Reason For Visit Attending Provider ADM Date DC Date Status Disposition Source [place] [facility] 60726-7.63 [id number] Diagnos is: ICD-10- CM Z02.89 Encount er for other adminis trative examJENNIFER Rangel 03/04 [place] [facility]
--- OUTSIDE RECORDS SUMMARY | 2024-11-23 10:30 | XMS_ITS | Patient Health Record ---
Author Organization [facility] Address [address] [place] [address] Care Team Providers Care Assembler Chassis Name Role Phone Wes (RETIRED) Serge TSAI Primary Care Provid er Unavailable Daniel Barnett Jr Unavailable ALLERGIES Allergen (clinical drug ingredient) Drug/Non Drug Allergy documented on EMR Reaction Allergy Type Onset Date Status codeine Codeine Sulfate Unknown Drug Allergy A ctive REASON FOR REFERRAL No Information MEDICATIONS Medication SIG (Take, Route, Frequency, Duration) Notes Start Date End Date Status chlordiazePOXIDE-Amitriptyli ne prn Active Levothyroxine Sodium 25 MCG 1 capsule Or ally Once a day Active Omeprazole 40 MG TAKE 1 CAPSULE BY [facility] TWICE A DAY for 30 days Active Atorvastatin Calcium 40 MG 1 tablet Oral ly Once a day Active Omeprazole 40 MG 60 Orally 1 PO Twice a Day for 30 day(s) 05/10/2024 Active MiraLax (colon prep) 17 GM/SCOOP mixed with Gatorade or Crystal Light Orally begin at 5:00 p.m. the day before the procedure for 1 day 11/26/2022 Active Propranolol HCl 40 MG 1 tablet Orally Tw ice a day Active Lisinopril 40 MG 1 tablet Orally Once a day Active IMMUNIZATIONS Vaccine Route Administration Date Status Comme nts Influenza Unknown 05/29/2020 Administered Influenza Unknown 07/15/2022 Administered SOCIAL HISTORY Sex Assigned At : Social History Observation Description Sex Assigned At Unknown PROBLEMS Problem Type ICD Code Onset Dates Problem Status W/U Status Risk SNOMED Code Notes Problem Colon cancer screening (Z12.11) Active confirmed 034437452 Problem Special screening for malignant neoplasms, colon (Z12.11) Active confirmed 988790979 Problem Personal history of colonic polyps (Z86.010) Active confirmed 022364886 Problem Gastroesophageal reflux disease without esophagitis (K21.9) Active confirmed 733584720 Problem Dysphagia, unspecified type (R13.10) Active confirmed 83651821 Encounters Encounter Location Date Provider Diagnosis [facility] [address] [place] [address] 05/10/2024 Daniel Barnett Jr PLAN OF TREATMENT Pending Test Test Name Order Date XR BARIUM SWALLOW-ESOPHAGUS 12/06/2015 Future Test Test Name Order Date COLONOSCOPY 11/19/2011 UPPER GI ENDOSCOPY 02/03/2013 COLONOSCOPY 01/30/2017 COLONOSCOPY 11/26/2022 Insurance Providers Payer Name Payer Address Payer Phone Subscriber Number Group Number Insured Name Patient Relationship to Insured Coverage Start Date Coverage End Date [facility] [address] [place], [place] [id number] [phone] [id number] SAMMI ZULUAGA Self - patient is the insured MEDICAL (GENERAL) HISTORY Medical History History ICD Code hypertension elevated cholesterol hypothyroidism migraine headaches Colonoscopy 05/14, history of tubular khadar nomas, five-year followup 05/19. plantar fasciitis GERD (gastroesophageal reflu x disease), upper endoscopy 04/09, no Powers's esophagus or H. pylori. Abdominal pain Surgical History Surgery Date(Month/Year) arthroscopy right knee
--- OUTSIDE RECORDS SUMMARY | 2024-11-23 10:30 | XMS_ITS | Encounter Summary ---
Author Name [facility] [facility] Address [address] [place] [id number] Insurance Providers: All historical and current Section Date Range: From patient's date of to the date document was created. This section includes the names of all active insurance providers for the patient. Insurance Provider Type of Coverage Plan Name Start of Policy Coverage End of Policy Coverage Group Number Member ID Insurance Provider's Telephone Number Policy Wallace's Name Patient's Relationship to Policy Wallace [place] PREFERRED PROVIDER ORGANIZAT ION (PPO) STAND ZAYNAB INDIV IDUAL Oct 10, 2001 [id number] Vinny ZULUAGA [place] PATIENT [place] FEDERAL PREFERRED PROVIDER ORGANIZAT ION (PPO) STAND ZAYNAB SELF Oct 10, 2001 [id number] [phone] Vinny ZULUAGA OHT[place] PATIENT [employer] EP BCBS PRESCRIPT ION FEP CAREM ARK Sep 28, 2010 [id number] Vinny ZULUAGA PATIENT Selected Encounter This section includes the information on record at [place] for the Encounter. Date/Time Encounter Type Encounter Description Reason Provider Source Mar 04, 2024 08:00 AM [facility] AUDIOLOGY ICD-10-CM Z02.89 Encounter for other administrative examinations GUSTABO MARIA [facility] Encounter Template Text not used by [place] Assessments - Encounter Diagnoses This section includes the primary and secondary diagnoses documented for the Encounter. Date/Time Primary/Secondary Diagnosis Diagnosis Name Provider Source Mar 04, 2024 08:04 AM PRIMARY Encounter for other administrative examinations GUSTABO MARIA [facility] Encounter Notes: All associated encounter notes This section contains the clinical notes associated to the Encounter. Date/Time Encounter Note(s) Provider Source Mar 04, 2024 07:51 AM AUDIOLOGY NOTE: LOCAL TITLE: [employer]EE [employer]AR[employer] CONSERVATION STANDARD TITLE: AUDIOLOGY NOTE DATE OF NOTE: MAR 04, 2024@07:51 ENTRY DATE: MAR 04, 2024@07:51:41 AUTHOR: GUSTABO MARIA COSIGNER: URGENCY: STATUS: COMPLETED EMPLOYEE HEALTH HEARING CONSERVATION Has ADDENDA You may not VIEW this COMPLETED EMPLOYEE HEALTH HEARING CONSERVATION. GUSTABO MARIA [place] [facility]
--- OUTSIDE RECORDS SUMMARY | 2024-11-23 10:30 | XMS_ITS ---
Author Organization Serge Harvey DO, FAC Address [address] [place] [id number] Care Team Providers Care Cement Tester Assistant Name Role Phone WesSerge kasper Primary Care Provider ALLERGIES No Known Allergies RESULTS Component Value Reference Range Notes PSA,Total (Free>4and<10) Reviewed date:08/17/2024 02:34:59 PM Interpretation:Normal Performing Lab:[facility], [address] [place] [phone] Notes/Report: PSA,Total (Free>4and<10) 0.33 0.00-4.00 ng/mL A [...] [facility] Chemiluminescent Microparticle Immunoassay (CMIA) REASON FOR VISIT Follow up hypertension, hypercholesterolemia, hypothyroidism MEDICATIONS Medication SIG (Take, Route, Frequency, Duration) Notes Start Date End Date Status Verapamil HCl 40 MG 1 tablet Orally Twic e a day Active Topamax 50 MG 1 tablet at bedtime Orally Once a day Active Multivitamins 1 tablet Orally Once a day Active Vitamin D 2000 UNIT 1 capsule Orally Onc e a day 09/11/2015 Active Rizatriptan Benzoate 10 MG 1 tablet as n eeded Orally Once a day Active Aspirin Adult Low Dose 81 MG 1 tablet Or ally Once a day Active Lisinopril 40 MG 1 tablet Orally Once a day Active Atorvastatin Calcium 40 MG 1 tablet Oral ly Once a day Active Omeprazole 20 MG 1 capsule Orally Onc e a day 10/05/2012 Active Levothyroxine Sodium 25 MCG 1 tablet in the morning on an empty stomach Orally Once a day Active SOCIAL HISTORY Tobacco Use: Social History Observation [...] Never (0 point) Points 1 Interpretation Negative VITAL SIGNS Height 68.75 in 08/12/2024 Encounters Encounter Location Date Provider Diagnosis Serge Harvey DO, [address] [id number] 08/12/2024 Serge Harvey Essential hypertensi on I10 [...] ening (ICD-10 - Z12.5) PLAN OF TREATMENT Medication Medication Name Sig Start Date Stop Date Notes Verapamil HCl 40 MG 1 tablet Orally Twice a day Topamax 50 MG 1 tablet at bedtime Orally Once a day Multivitamins 1 tablet Orally Once a day Vitamin D 2000 UNIT 1 capsule Orally Once a day 09/11/2015 Rizatriptan Benzoate 10 MG 1 tablet as n eeded Orally Once a day Aspirin Adult Low Dose 81 MG 1 tablet Orally Once a day Lisinopril 40 MG 1 tablet Orally Once a day Atorvastatin Calcium 40 MG 1 tablet Orally Once a day Omeprazole 20 MG 1 capsule Orally Once a day 10/05/2012 Levothyroxine Sodium 25 MCG 1 tablet in the morning on an empty stomach Orally Once a day Next Appt Details Follow Up: 6 Months, Reason: H&P Progress Notes * Examination Category Sub-Category Detail Notes General Examination GENERAL APPEARANCE: in no ac loyda distress, well developed, well nourished LUNGS: breathing comfortabl y at rest PSYCH: alert, oriented, cog nitive function intact History and Physical Notes * HPI (History of Present Illness) Category Sub-Category Detail Notes New symptom(s) Telehealth Location of provider:: Pro reid's home address Location of patient:: Address listed in demographics for today's visit Patient identification confirmed using:: Name, Telehealth method:: Video co nference where patient is visible to the provider of care Consent:: Patient verbally c onsented to treatment, Patient verbally consented to [employer], Patient informed of any privacy concerns related to method of visit Total time spent with patient (mins): 33 Disclaimer: This Telehealth visit is being conducted per CDC recommendations due to the COVID-19 outbreak. Depression Screening PHQ-9 Little inte rest or pleasure in doing things: Not at all Feeling down, depressed, or hopeless: No t at all Trouble falling or staying asleep, or sl eeping too much: Not at all Feeling tired or having little energy: N ot at all Poor appetite or overeating: Not at all Feeling bad about yourself o r that you are a failure, or have let yourself or your family down: Not at all Trouble concentrating on thi ngs, such as reading the newspaper or watching television: Not at all Moving or speaking so slowly that other people could have noticed; or the opposite, being so fidgety or restless that you have been moving around a lot more than usual: Not at all Thoughts that you would be b reid off or of hurting yourself in some way: Not at all Total Score: 0 Interpretation and Intervention Depression Lilliam fierro Findings: Negative Follow-Up for Depression: : Review of PH Q-9 found negative result; no follow-up needed Fall Risk Fall History Have you had two or more fal ls in the past year?: No Have you had any falls with injury in th e past year?: No Fall Risk Assessment:: No falls in the p ast year Communication Needs PCMH Communication Needs - PCM Gomez downing Impairment?: No Vision Impairment?: Yes wears glasses Cognitive Impairment?: No SDOH Questions SDOH Questions In the past year have you been worried about losing your housing?: No In the past year have you or any family members you live with been unable to get any of the following when it was really needed? Check all that apply:: None
--- OUTSIDE RECORDS SUMMARY | 2024-11-23 10:30 | XMS_ITS ---
Author Organization Serge Harvey DO, FACP Address [address] [place], [place] [phone] Care Team Providers Care Nursing Home Director Name Role Phone Serge Harvey Primary Care Provider REASON FOR VISIT Refill MEDICATIONS Medication SIG (Take, Route, Frequency, Duration) Notes Start Date End Date Status Atorvastatin Calcium 40 MG 1 tablet Oral ly Once a day for 90 days Active Encounters Encounter Location Date Provider Diagnosis Serge Harvey DO, FACP [address] [place] [phone] 10/23/2023 Serge Harvey PLAN OF TREATMENT Medication Medication Name Sig Start Date Stop Date Notes Atorvastatin Calcium 40 MG 1 tablet Oral ly Once a day for 90 days
--- OUTSIDE RECORDS SUMMARY | 2024-11-23 10:30 | XMS_ITS ---
Author Organization Serge Harvey DO, FACP Address [address] [place], [place] [phone] Care Team Providers Care Tool Hardener Name Role Phone Serge Harvey Primary Care Provider REASON FOR VISIT 3 month f/u Encounters Encounter Location Date Provider Diagnosis Serge Harvey DO [facility] [id number] 11/23/2024 Serge Harvey PLAN OF TREATMENT No Information
== END 2024-11-23 10:03 | disposition home or self-care (01) ==
LOC: HO.HMCSH 09:20
PROVIDERS: PCP Internal Medicine; Visit Provider Physician Assistant Medical
DX: I10 Essential (primary) hypertension (principal); E03.9 Hypothyroidism, unspecified; E78.00 Pure hypercholesterolemia, unspecified; G43.909 Migraine, unspecified, not intractable, without status migrainosus; K21.9 Gastro-esophageal reflux disease without esophagitis; E55.9 Vitamin D deficiency, unspecified; R73.03 Prediabetes; E66.811 Obesity, class 1

== ENCOUNTER 2025-05-08 09:40 | Outpatient (AMB) | payer BC, SELFPAY ==
--- NOTE | 2025-05-08 09:42 | MHC.OFFVIS ---
Intake Visit Reasons: 6 Months F/U Allergies oxycodone (OXYCODONE) Allergy (Unknown, Verified 05/08/25 09:42) GI UPSET, stomach upset codeine Adverse Reaction (Verified 05/08/25 09:42) Unknown Medication List - Last Reconciled 05/08/25 by Idalmis Zelaya CNP aspirin (Adult Low Dose Aspirin) 81 mg PO DAILY atorvastatin 40 mg PO DAILY cholecalciferol (vitamin D3) 50 mcg PO DAILY divalproex 250 mg PO DAILY levothyroxine 25 mcg PO DAILY lisinopril 40 mg PO DAILY omeprazole 40 mg PO BID propranolol 40 mg PO DAILY rizatriptan 10 mg PO Q2-4H PRN verapamil 40 mg PO BID HPI Comments Details: 64-year-old man with migraine headaches. He was doing okay. Migraines were controlled with current medication. He had about 3 migraines in the last 6 months. Rizatriptan as needed helped. Sleep was up and down, some nights better than others. [facility] Medical History (Updated 05/08/25 @ 09:46 by Idalmis Zelaya CNP) Migraine without aura Obesity Obesity (BMI 30.0-34.9) Prediabetes Peyronie's disease Vitamin D deficiency Onychomycosis Carpal tunnel syndrome Deviated septum Mild hypercholesterolemia Abdominal pain GERD (gastroesophageal reflux disease) Plantar fasciitis Tubular adenoma Migraine headache Hypothyroidism Elevated cholesterol Hypertension Surgical History H/O arthroscopy of knee H/O endoscopy H/O colonoscopy (~01/09/23) Social History Patient Tobacco Use Status: Former Tobacco user Review of Systems Const Denies chills, Denies daytime sleepiness, Reports difficulty sleeping, Denies fatigue, Denies fever(s), Denies frequent falls, Reports headache(s), Denies increased appetite, Denies poor appetite, Denies snoring, Denies weakness, Denies weight gain and Denies weight loss Eyes Denies loss of vision ENT Denies vertigo, Denies dizziness and Reports headache(s) Card Denies chest pain at rest, Denies chest pain with activity, Denies syncope, Denies leg edema and Denies palpitations Resp Denies snoring GI Denies constipation, Denies heartburn, Denies diarrhea and Denies nausea Denies urinary frequency, Denies urinary incontinence and Denies urinary urgency Musc Denies abnormal gait, Denies numbness and Denies tingling Skin/Breast Denies dry skin and Denies rash Neuro Denies abnormal gait, Denies vertigo, Denies dizziness, Denies syncope, Denies frequent falls, Reports headache(s), Denies lack of coordination, Denies loss of vision, Denies memory loss, Denies numbness, Denies restless legs, Denies seizure-like activity, Denies tingling, Denies paresthesias, Denies tremor(s) and Denies weakness Psych Denies anxiety, Denies depression, Denies auditory hallucinations, Denies memory loss, Denies visual hallucinations and Denies suicidal ideation Endo Denies fatigue and Denies palpitations Physical Exam Const Other: General Appearance:? normal, in no acute distress. Skin:? no rashes, no significant birthmarks. Heart:? S1, S2 normal, no murmurs. Lungs:? clear anteriorly and posteriorly. Extremities:? no edema. Psych:? alert, oriented, cognitive function intact, cooperative with exam. Neuro Other: Mental Status:?Normal attention, orientation, memory and affect.? Cranial Nerves:?Pupils are equal, round and reactive to light. External occular muscles are intact. Visual tobias are full. Face is symmetrical. Facial sensations are normal. Tongue is midline. Palate elevates symmetrically. Shoulder shrugging is normal. Hearing to bedside conversation is normal. Sensory Exam:?....? Coordination:?No ataxia,?no titubation.? Gait Exam: Within normal limits. Extrapyramidal System:?No tremor, rigidity with normal facial expressions.? Pronator Drift:?Not present.? Involuntary Movements:?No tremors seen.? Speech:?Normal.? Assessment & Plan Assessment & Plan (1) Migraine without aura: Code(s): G43.009 - Migraine without aura, not intractable, without status migrainosus Category: Medical Qualifiers: Status migrainosus presence: without status migrainosus Intractability: not intractable Qualified Code(s): G43.009 - Migraine without aura, not intractable, without status migrainosus Plan: Continue Depakote ER 250mg 1 tablet daily Continue propranolol 40mg 1 tablet daily Continue rizatriptan 10mg 1 tablet as needed for migraine Plan Meds tried for migraine: Topamax, propranalol, amitriptyline, chlordiazepoxide, Depakote Coding Level of Care Code Est Pt Level 4 (48074) Diagnoses Migraine without aura and without status migrainosus, not intractable G43.009 Status migrainosus presence: without status migrainosus Intractability: not intractable
== END 2025-05-08 09:57 | disposition home or self-care (01) ==
LOC: HO.HSM 09:41
PROVIDERS: PCP Internal Medicine; Referring Provider Internal Medicine; Visit Provider Registered Nurse
DX: G43.009 Migraine without aura, not intractable, without status migrainosus (principal)
CPT/HCPCS: 99214

== ENCOUNTER 2025-05-17 11:38 | Outpatient (REF) | payer BC, SELFPAY ==
--- OUTSIDE RECORDS SUMMARY | 2024-03-04 04:00 | XMS_ITS | Continuity of Care Document ---
Author Name [facility] Organization [facility] Care Team Providers Care Sugarcane Planter Name Role Phone [facility] Unavailable Unavailable Problems Combined list of problems [...] Site Reaction Lot Number CVX Code Drug Photographic Intelligence Officer Status Comments Source FLU,3 YRS (HISTORICAL) 2011 [...] (HISTORICAL) 2003 SANDRA STUBBS 88 complet ed [facility] FLU,3 YRS (HISTORICAL) 2002 Franklyn HINKLE 88 complet ed [facility] FLU,3 YRS (HISTORICAL) 2000 JEWEL DIEHL 88 comple t ed [place] [facility] [place] [facility] Encounters Combined list of: 1) Encounters from Department of Veterans Affairs facilities going backup to the last 18 months, not all [place] inpatient encounters are included; 2) Encounters from the Department of Defense facilities going backup to 280 months. Location Location Details Encounter Type Encounter Number Reason For Visit Attending Provider ADM Date DC Date Status Disposition Source [place] [facility] [place] 00820-3.63 [id number] Diagnos is: ICD-10- CM Z02.89 Encount er for other adminis trative examJENNIFER Rangel 03/04 [place] [facility] [place] [facility]
[2025-05-17 14:57] LABS: MANUAL DIFF FLAG NO
[2025-05-17 14:58] LABS: Hematocrit 45.8 % (42.0-52.0); Hemoglobin 15.6 g/dl (14.0-18.0); Imm Gran Abs Auto 0.01 X10*3/uL (0.00-0.03); Imm Gran Pct Auto 0.2 % (0.0-0.4); Lymphocytes Absolute Auto 1.8 X10*3/uL (1.2-4.9); Mean Corpuscular HGB Conc 34.1 g/dl (31.0-36.0); Mean Corpuscular Hemoglobin 28.7 pg (27.0-33.0); Mean Corpuscular Volume 84.2 fL (80.0-98.0); NRBC Abs Auto 0.000 X10*3/uL (0.0-0.012); NRBC Pct Auto 0.0 /100WBC (0.0-0.2); Platelet Count 185 X10*3/uL (160-400); Red Blood Count 5.44 X10*6/uL (4.60-5.80); White Blood Count 4.7 X10*3/uL (4.8-10.8)
[2025-05-17 15:46] LABS: Hemoglobin A1C 440.6411 umol/L; Total Hemoglobin (HGBA1C) 4075.2562 umol/L
[2025-05-17 16:09] LABS: Alanine Aminotransferase 30 U/L (0-40); Albumin Level 4.2 g/dL (3.5-5.0); Alkaline Phosphatase 105 U/L (39-117); Anion Gap 11 (12-20); Aspartate Amino Transferase 21 U/L (5-37); Blood Urea Nitrogen 14 mg/dL (9-16); Calcium 8.8 mg/dL (8.4-10.2); Carbon Dioxide 31 mmol/L (22-29); Chloride 101 mmol/L (96-108); Cholesterol 244 mg/dL (<200); Estimated Glomerular Filt Rate > 60; HDL Cholesterol 39 mg/dL (>40); Magnesium 1.9 mg/dL (1.6-2.6); Potassium 4.2 mmol/L (3.3-5.1); Sodium 139 mmol/L (135-145); Total Protein 6.7 g/dL (6.5-8.0); Triglycerides 205 mg/dL (<150)
[2025-05-17 16:25] LABS: Folate 6.7 ng/mL (> or = 4.0); Vitamin B12 848 pg/mL (200-900)
== END 2025-05-17 11:39 | disposition home or self-care (01) ==
LOC: HO.HMGCLDS 11:38
PROVIDERS: PCP Internal Medicine; Visit Provider Physician Assistant Medical
DX: Z00.00 Encounter for general adult medical examination without abnormal findings (principal); Z13.6 Encounter for screening for cardiovascular disorders; Z13.1 Encounter for screening for diabetes mellitus; Z13.0 Encounter for screening for diseases of the blood and blood-forming organs and certain disorders involving the immune mechanism
CPT/HCPCS: 36415; 80053; 80061; 80076; 82248; 82306; 82607; 82746; 83036; 83735; 84425; 84443; 85025; 86140

== ENCOUNTER 2025-05-18 14:51 | Outpatient (AMB) | payer BC, SELFPAY ==
--- OUTSIDE RECORDS SUMMARY | 2024-03-04 04:00 | XMS_ITS | Continuity of Care Document ---
Author Name [facility] Organization [facility] Care Team Providers Care Photo Editor Name Role Phone [facility] Unavailable Unavailable Problems Combined list of problems [...] Site Reaction Lot Number CVX Code Drug Application Programmer Analyst Status Comments Source FLU,3 YRS (HISTORICAL) 2011 [...] (HISTORICAL) 2003 SANDRA STUBBS 88 complet ed [facility] FLU,3 YRS (HISTORICAL) 2002 Frank[place] HINKLE 88 complet ed [facility] FLU,3 YRS (HISTORICAL) 2000 JEWEL DIEHL 88 comple t ed [place] [facility] [place] [facility] Encounters Combined list of: 1) Encounters from Department of Veterans Affairs facilities going backup to the last 18 months, not all [place] inpatient encounters are included; 2) Encounters from the Department of Defense facilities going backup to 280 months. Location Location Details Encounter Type Encounter Number Reason For Visit Attending Provider ADM Date DC Date Status Disposition Source [facility] [place] 29645-9.63 [id number] Diagnos is: ICD-10- CM Z02.89 Encount er for other adminis trative examJENNIFER Rangel 03/04 [place] [facility] [place] [facility]
--- NOTE | 2025-05-18 14:44 | MHC.PC.OV ---
Intake Visit Reasons: Lab work discussion Intake Note: no other issues Squad Leader Required: No Accompanied by: Self / Same As Patient Allergies oxycodone (OXYCODONE) Allergy (Unknown, Verified 05/18/25 15:25) GI UPSET, stomach upset codeine Adverse Reaction (Verified 05/18/25 15:25) Unknown Medication List - Last Reconciled 05/18/25 by Stephanie Slater PA-C alcohol swabs (Alcohol Pads) 1 pad topical TIDWMEAL aspirin (Adult Low Dose Aspirin) 81 mg PO DAILY atorvastatin 40 mg PO DAILY blood sugar diagnostic (FreeStyle Lite Strips) Check glucose 3 times a day before meals blood-glucose meter (FreeStyle Lite Meter kit) Check glucose 3 times a day with meals cholecalciferol (vitamin D3) 50 mcg PO DAILY divalproex 250 mg PO DAILY insulin glargine (Basaglar KwikPen U-100 Insulin) 20 units (0.2 mL) subcut QPM levothyroxine 25 mcg PO DAILY lisinopril 40 mg PO DAILY metformin ER (Glucophage XR) 500 mg PO BID 30 days omeprazole 40 mg PO BID propranolol 40 mg PO DAILY rizatriptan 10 mg PO Q2-4H PRN verapamil 40 mg PO BID Tobacco use date assessed: 05/18/25 Fall risk assessment: No Falls in past year Last assessed Fall Risk: 05/18/25 Dental Screening Dental Screen Date: 05/18/25 Did you have a dental visit in the last 12 months?: Yes Did you have a dental problem in the last 6 months where you did not have access to dental care?: No Was dental information given to patient?: Patient has dentist HPI Lab work discussion HPI Details The patient is a 64-year-old male presenting with newly diagnosed diabetes mellitus. The diagnosis was made following a review of recent laboratory results, which indicated a hemoglobin A1c level of 12.0%, significantly above the normal range of 6.5% or lower. The patient's blood glucose levels have been consistently in the 300s mg/dL, which is markedly elevated compared to the normal range of 60-99 mg/dL for non-diabetics. In 2021, the patient's A1c level was 6.2%, placing him in a prediabetic state at that time. The progression to diabetes may have occurred since 2022, although the exact timeline is unclear. The patient reports symptoms consistent with hyperglycemia, including frequent headaches, increased urination, and excessive thirst. There is no mention of prior hospitalizations or significant medical interventions related to diabetes management before this diagnosis. The patient also has hypercholesterolemia, noted during the review of his blood work, although specific cholesterol levels were not detailed in the conversation. [facility] Medical History Uncontrolled diabetes mellitus with hyperglycemia New onset type 2 diabetes mellitus Migraine without aura Obesity Obesity (BMI 30.0-34.9) Prediabetes Peyronie's disease Vitamin D deficiency Onychomycosis Carpal tunnel syndrome Deviated septum Mild hypercholesterolemia Abdominal pain GERD (gastroesophageal reflux disease) Plantar fasciitis Tubular adenoma Migraine headache Hypothyroidism Elevated cholesterol Hypertension Surgical History H/O arthroscopy of knee H/O endoscopy H/O colonoscopy (~01/09/23) Family History Father Diabetes Mother Diabetes High blood pressure S/P triple vessel bypass Social History Housing: House Alcohol intake: current Alcohol intake frequency: holidays/special occasions only Patient Tobacco Use Status: Former Tobacco user service: Yes Current occupational status: retired Cognitive needs: No Hearing needs: No Vision needs: Yes (rx glasses) Questionnaire PHQ-9 Over the last 2 weeks, how often have you been bothered by any of the following problems? 1. Little interest or pleasure in doing things: not at all 2. Feeling down, depressed, or hopeless: not at all 3. Trouble falling or staying asleep, or sleeping too much: not at all 4. Feeling tired or having little energy: not at all 5. Poor appetite or overeating: not at all 6. Feeling bad about yourself - or that you are a failure or have let yourself or your family down: not at all 7. Trouble concentrating on things, such as reading the newspaper or watching television: not at all 8. Moving or speaking so slowly that other people could have noticed. Or the opposite - being so fidgety or restless that you have been moving around a lot more than usual: not at all 9. Thoughts that you would be better off or of hurting yourself in some way: not at all Total score: 0 Depression Screening Interpretation: Negative Depression Screening Done: Yes 40377 - PHQ-9 Billing: Yes Source: Developed by Drs. Serge Klein, Areli Good, Mekhi Beckett and colleagues, with an educational felix from [employer]. Thrive Questionnaire Date Thrive assessed: 05/18/25 I am a: Patient What is your living situation today?: I have a steady place to live Within the past 12 months, did the food you bought not last and you didn't have the money to get more?: Never true Within the past 12 months, did you worry whether your food would run out before you got money to buy more?: Never true Do you have trouble paying for medicines?: No Do you have trouble getting transportation to medical appointments?: No Do you have trouble paying your heating and electricity bill?: No Do you have trouble taking care of your child, family member or friend?: No Do you have trouble with day-to-day activities such as bathing, preparing meals, shopping, managing finances, etc.?: No Are you currently unemployed and looking for a job?: No Are you interested in more education?: No Please select the resources that you would like help with: None Currently or been in a relationship where the following occur: No concerns reported THRIVE Score: 0 AUDIT C Alcohol Use Questionnaire (AUDIT-C) 1. How often do you have a drink containing alcohol?: Monthly or less 2. How many drinks containing alcohol do you have on a typical day when you are drinking?: 1 or 2 3. How often do you have six or more drinks on one occasion?: Never Total Score: 1 Score Reviewed/Action Taken: No RONAK-7 AMB Questionnaire RONAK-7 Date RONAK - 7 assessed: 05/18/25 Feeling nervous, anxious, or on edge: 0 = Not at all Not being able to stop or control worryin = Not at all Worrying too much about different things: 0 = Not at all Trouble relaxin = Not at all Being so restless that it is hard to sit still: 0 = Not at all Becoming easily annoyed or irritable: 0 = Not at all Feeling afraid as if something awful might happen: 0 = Not at all Total RONAK-7 score (0-4 normal; 5-9 mild; 10-14 moderate; 15-21 severe): 0 Source: Developed by Drs. Serge Klein, Areli Good, Mekhi Beckett and colleagues, with an educational felix from [employer]. RONAK-7 Assessment Billing RONAK-7 Assessment Tool: RONAK-7 Assessment 95597 Review of Systems Const Details: - Neurological: Reports frequent headaches. - Genitourinary: Reports increased urination. - General: Reports excessive thirst. All systems reviewed & are unremarkable except as noted in HPI and below Physical exam (Primary Care) Care Plan Goal for BP management: <140/90 at Goal BMI Assessment/Plan discussion: High BMI High, discussed plan: lifestyle, weight reduction, dietary, physical activity, alcohol moderation and other Tobacco/Smoking Status: Tobacco use Status Tobacco use date assessed 05/18/25 05/18/25 14:51 Patient Tobacco Use Status Former Tobacco user 05/18/25 15:04 PHQ-9: PHQ-9 Score PHQ-9: Total score 0 05/18/25 15:05 Depression Screening Interpretation: Negative Thrive Assessment: Date of Thrive Assessment Date Thrive assessed 05/18/25 05/18/25 14:51 Currently or been in a relationship where the following occur: No concerns reported Telehealth Telehealth Telehealth Platform: Telephone Location of provider rendering services: practice address Location of patient: address on file Patient Identification confirmed using: Name, : Yes Telehealth method: voice only Patient verbally consented to treatment: Yes Patient verbally consented to billing insurance company: Yes Patient informed of any privacy concerns related to visit: Yes Minutes spent on Phone/Video with Pt.: 25 Results Reviewed Results Reviewed: - Labs: Hemoglobin A1c level of 12.0%, indicating poorly controlled diabetes. - Labs: Blood glucose levels consistently in the 300s mg/dL. Coding Level of Care Code Tele Est Pt Level 4 (87433) Complex EM visit Add On G2211 Diagnoses New onset type 2 diabetes mellitus E11.9 Uncontrolled diabetes mellitus with hyperglycemia E11.65 Mild hypercholesterolemia E78.00 Additional Codes PHQ-9 - 81611 - PHQ-9 Billing: Yes ([id number]) RONAK-7 Assessment Billing - RONAK-7 Assessment Tool: RONAK-7 Assessment 05704 ([id number]) Assessment & Plan Assessment & Plan (1) New onset type 2 diabetes mellitus: Code(s): E11.9 - Type 2 diabetes mellitus without complications Category: Medical Plan: The patient will be started on metformin 500 mg twice daily to manage blood glucose levels. Along with glargine 20 units at bedtime. The patient is advised to monitor blood glucose levels three times daily before meals using a glucose monitor, with target pre-meal glucose levels between 80-130 mg/dL. The patient will receive education on dietary modifications, focusing on reducing carbohydrate intake to manage blood sugar levels. Follow-up is scheduled for next week to assess response to metformin and consider the addition of insulin therapy if necessary. (2) Uncontrolled diabetes mellitus with hyperglycemia: Code(s): E11.65 - Type 2 diabetes mellitus with hyperglycemia Category: Medical (3) Mild hypercholesterolemia: Code(s): E78.00 - Pure hypercholesterolemia, unspecified Category: Medical Plan: The patient's elevated cholesterol levels were noted, but treatment will be deferred until the patient is stabilized on metformin to avoid confounding side effects. Plan Plan Patient was informed and verbally consented to the use of an ambient scribe for clinic note documentation during this visit. 1. Diabetes Mellitus The patient will be started on metformin 500 mg twice daily to manage blood glucose levels. The patient is advised to monitor blood glucose levels three times daily before meals using a glucose monitor, with target pre-meal glucose levels between 80-130 mg/dL. The patient will receive education on dietary modifications, focusing on reducing carbohydrate intake to manage blood sugar levels. Follow-up is scheduled for next week to assess response to metformin and consider the addition of insulin therapy if necessary. 2. Hypercholesterolemia The patient's elevated cholesterol levels were noted, but treatment will be deferred until the patient is stabilized on metformin to avoid confounding side effects. I discussed with the patient the diagnosis of diabetes mellitus and the importance of managing blood glucose levels to prevent complications such as heart attacks and strokes. We reviewed the plan to start metformin and the potential side effects, including gastrointestinal upset and possible weight loss. I emphasized the need for dietary changes, particularly reducing carbohydrate intake, and the importance of regular blood glucose monitoring. The patient was informed about the follow-up appointment next week to evaluate the effectiveness of the treatment and discuss the potential initiation of insulin therapy. Medications: New blood-glucose meter (FreeStyle Lite Meter kit) Check glucose 3 times a day with meals 1 ea 3RF E11.9 - Type 2 diabetes mellitus without complications blood sugar diagnostic (FreeStyle Lite Strips) Check glucose 3 times a day before meals 100 ea 3RF E11.65 - Type 2 diabetes mellitus with hyperglycemia, E11.9 - Type 2 diabetes mellitus without complications alcohol swabs (Alcohol Pads) 1 pad topical TIDWMEAL 100 ea 1RF insulin glargine (Basaglar KwikPen U-100 Insulin) 20 units (0.2 mL) subcut QPM 15 mL 0RF E11.65 - Type 2 diabetes mellitus with hyperglycemia, E11.9 - Type 2 diabetes mellitus without complications, E66.811 - Obesity, class 1 metformin ER (Glucophage XR) 500 mg PO BID 60 tabs 0RF 30 days Patient Instructions: - Start taking metformin 500 mg twice daily as prescribed. - Monitor blood glucose levels three times daily before meals. - Follow a low-carbohydrate diet to help control blood sugar levels. - Attend the follow-up appointment next week to assess treatment progress. - equipment superintendent prescribed medications and supplies from the pharmacy.
== END 2025-05-18 15:23 | disposition home or self-care (01) ==
LOC: HO.HMCSH 14:51
PROVIDERS: PCP Internal Medicine; Visit Provider Physician Assistant Medical
DX: E11.65 Type 2 diabetes mellitus with hyperglycemia (principal); E78.00 Pure hypercholesterolemia, unspecified

== ENCOUNTER → 2025-05-18 14:51 | Outpatient (BNVA) | payer BC, SELFPAY | PROVIDERS: PCP Internal Medicine; Visit Provider Physician Assistant Medical | DX: E11.65 Type 2 diabetes mellitus with hyperglycemia (principal); E78.00 Pure hypercholesterolemia, unspecified; E66.811 Obesity, class 1 | CPT/HCPCS: 96127 ==

== ENCOUNTER 2025-05-22 09:08 | Outpatient (AMB) | payer BC, SELFPAY ==
--- OUTSIDE RECORDS SUMMARY | 2024-03-04 04:00 | XMS_ITS | Continuity of Care Document ---
Author Name [facility] Organization [facility] Care Team Providers Care Roving Carrier Name Role Phone [facility] Unavailable Unavailable Problems Combined list of problems from Department of Defense and Veterans Affairs facilities. It does not include entries that were removed or entered in error. Problem Status Onset Date Problem Type Date of Resolution Comments Source Essential hypertension Active Condition [facility] Diagnosis: ICD-10-CM Z02.89 Encounter for other administrative examinations Active Diagnosis [facility] Immunizations Combined list of available immunizations from the Department of Defense and Veterans Affairs facilities. Immunization Series Date Given Administered By Site Reaction Lot Number CVX Code Drug Box Bender Status Comments Source FLU,3 YRS (HISTORICAL) 2011 88 complet ed Site: Left Deltoid [facility] FLU,3 YRS (HISTORICAL) 2010 88 complet ed Site: Right Deltoid [facility] FLU,3 YRS (HISTORICAL) 2009 88 complet ed Site: Left Deltoid [facility] NOVEL INFLUENZA-H1N 1-09, ALL FORMULATIONS 2008 128 complet ed [employer] [facility] FLU,3 YRS (HISTORICAL) 2008 88 complet ed Site: Right Deltoid [facility] FLU,3 YRS (HISTORICAL) 2007 88 complet ed Site: Left Deltoid [facility] FLU,3 YRS (HISTORICAL) 2006 88 complet ed Site: Left Deltoid [facility] FLU,3 YRS (HISTORICAL) 2005 88 complet ed [facility] FLU,3 YRS (HISTORICAL) 2004 MARLENI BUSH 88 complet ed [facility] FLU,3 YRS (HISTORICAL) 2003 SANDRA STUBBS 88 complet ed [facility] FLU,3 YRS (HISTORICAL) 2002 Franklyn HINKLE 88 complet ed [facility] FLU,3 YRS (HISTORICAL) 2000 JEWEL DIEHL 88 comple t ed [facility] Encounters Combined list of: 1) Encounters from Department of Veterans Affairs facilities going backup to the last 18 months, not all [place] inpatient encounters are included; 2) Encounters from the Department of Defense facilities going backup to 280 months. Location Location Details Encounter Type Encounter Number Reason For Visit Attending Provider ADM Date DC Date Status Disposition Source [facility] [place] 12797-1.63 [id number] Diagnos is: ICD-10- CM Z02.89 Encount er for other adminis trative examJENNIFER Rangel 03/04 [place] [facility] [place] [facility]
--- NOTE | 2025-05-22 09:11 | A.OFFPC_ITS ---
Vital Signs 05/22/25 09:16 Height 5 ft 7.75 in BP 116/78 Blood Pressure Location Lt brachial Position Sitting Respiration 16 Pulse 67 Pulse Source Pulse Oximeter Temp 97.1 F Temp Source Temporal Artery Scan Pulse Oximetry (%) 96 Oxygen Delivery Method Room Air Intake Visit Reasons: 6 month f/u Intake Note: no other issues On Awake Counselor Required: No Accompanied by: Self / Same As Patient Allergies oxycodone (OXYCODONE) Allergy (Unknown, Verified 05/22/25 09:41) GI UPSET, stomach upset codeine Adverse Reaction (Verified 05/22/25 09:41) Unknown Medication List - Last Reconciled 05/22/25 by Stephanie Slater PA-C alcohol swabs (Alcohol Pads) 1 pad topical TIDWMEAL aspirin (Adult Low Dose Aspirin) 81 mg PO DAILY atorvastatin 40 mg PO DAILY blood sugar diagnostic (FreeStyle Lite Strips) Check glucose 3 times a day before meals blood-glucose meter (FreeStyle Lite Meter kit) Check glucose 3 times a day with meals cholecalciferol (vitamin D3) 50 mcg PO DAILY divalproex 250 mg PO DAILY insulin glargine (Basaglar KwikPen U-100 Insulin) 20 units (0.2 mL) subcut QPM lancets (FreeStyle Lancets) Check glucose 3 times a day with meals levothyroxine 25 mcg PO DAILY lisinopril 40 mg PO DAILY metformin ER (Glucophage XR) 500 mg PO DAILY omeprazole 40 mg PO BID pen needle, diabetic (Droplet Micron Pen Needle) Check glucose 3 times a day with meals propranolol 40 mg PO DAILY rizatriptan 10 mg PO Q2-4H PRN verapamil 40 mg PO BID Tobacco use date assessed: 05/18/25 Fall risk assessment: No Falls in past year Last assessed Fall Risk: 05/18/25 Dental Screening Dental Screen Date: 05/18/25 Did you have a dental visit in the last 12 months?: Yes Did you have a dental problem in the last 6 months where you did not have access to dental care?: No Was dental information given to patient?: Patient has dentist HPI 6 month f/u HPI Details The patient is a 64-year-old male presenting for a follow-up visit after being diagnosed with Type 2 Diabetes Mellitus. The patient was recently diagnosed with Type 2 Diabetes Mellitus and started on metformin and insulin therapy. He reports experiencing gastrointestinal side effects from metformin, including diarrhea and gas, which have impacted his sleep and daily activities. The patient has been advised to reduce the metformin dosage to 500 mg once daily to alleviate these symptoms. The patient is also managing Gastroesophageal Reflux Disease with omeprazole, which he takes regularly to control symptoms of reflux. His blood glucose levels have shown variability, with readings ranging from 86 mg/dL to over 200 mg/dL at different times of the day. He monitors his blood glucose levels multiple times a day, particularly in the morning and after meals. The patient's lipid profile indicates hyperlipidemia, with elevated total cholesterol and triglycerides. He is currently on atorvastatin, and there is a consideration to increase the dosage to better manage his cholesterol levels. The patient has a history of vitamin D deficiency, which is currently being managed with supplementation. Social History - Exercise: The patient reports engaging in walking as a form of exercise. - Dietary Habits: The patient consumes t wo meals a day and has been advised to avoid high-sugar foods and beverages. [facility]LY [facility] Medical History (Updated 05/22/25 @ 11:01 by Stephanie Slater PA-C) Hypertriglyceridemia Hyperlipidemia LDL goal <70 Uncontrolled diabetes mellitus with hyperglycemia New onset type 2 diabetes mellitus Migraine without aura Obesity Obesity (BMI 30.0-34.9) Prediabetes Peyronie's disease Vitamin D deficiency Onychomycosis Carpal tunnel syndrome Deviated septum Mild hypercholesterolemia Abdominal pain GERD (gastroesophageal reflux disease) Plantar fasciitis Tubular adenoma Migraine headache Hypothyroidism Elevated cholesterol Hypertension Surgical History H/O arthroscopy of knee H/O endoscopy H/O colonoscopy (~01/09/23) Family History Father Diabetes Mother Diabetes High blood pressure S/P triple vessel bypass Social History Housing: House Alcohol intake: current Alcohol intake frequency: holidays/special occasions only Patient Tobacco Use Status: Former Tobacco user service: Yes Current occupational status: retired Cognitive needs: No Hearing needs: No Vision needs: Yes (rx glasses) Questionnaire PHQ-9 Over the last 2 weeks, how often have you been bothered by any of the following problems? 1. Little interest or pleasure in doing things: not at all 2. Feeling down, depressed, or hopeless: not at all 3. Trouble falling or staying asleep, or sleeping too much: not at all 4. Feeling tired or having little energy: not at all 5. Poor appetite or overeating: not at all 6. Feeling bad about yourself - or that you are a failure or have let yourself or your family down: not at all 7. Trouble concentrating on things, such as reading the newspaper or watching television: not at all 8. Moving or speaking so slowly that other people could have noticed. Or the opposite - being so fidgety or restless that you have been moving around a lot more than usual: not at all 9. Thoughts that you would be better off or of hurting yourself in some way: not at all Total score: 0 Depression Screening Interpretation: Negative Depression Screening Done: Yes 34946 - PHQ-9 Billing: Yes Source: Developed by Drs. Serge Klein, Areli Good, Mekhi Beckett and colleagues, with an educational felix from [employer]. Thrive Questionnaire Date Thrive assessed: 05/18/25 I am a: Patient What is your living situation today?: I have a steady place to live Within the past 12 months, did the food you bought not last and you didn't have the money to get more?: Never true Within the past 12 months, did you worry whether your food would run out before you got money to buy more?: Never true Do you have trouble paying for medicines?: No Do you have trouble getting transportation to medical appointments?: No Do you have trouble paying your heating and electricity bill?: No Do you have trouble taking care of your child, family member or friend?: No Do you have trouble with day-to-day activities such as bathing, preparing meals, shopping, managing finances, etc.?: No Are you currently unemployed and looking for a job?: No Are you interested in more education?: No Please select the resources that you would like help with: None Currently or been in a relationship where the following occur: No concerns reported THRIVE Score: 0 RONAK-7 AMB Questionnaire RONAK-7 Date RONAK - 7 assessed: 05/18/25 Feeling nervous, anxious, or on edge: 0 = Not at all Not being able to stop or control worryin = Not at all Worrying too much about different things: 0 = Not at all Trouble relaxin = Not at all Being so restless that it is hard to sit still: 0 = Not at all Becoming easily annoyed or irritable: 0 = Not at all Feeling afraid as if something awful might happen: 0 = Not at all Total RONAK-7 score (0-4 normal; 5-9 mild; 10-14 moderate; 15-21 severe): 0 Source: Developed by Drs. Serge Klein, Areli Good, Mekhi Beckett and colleagues, with an educational felix from [employer]. RONAK-7 Assessment Billing RONAK-7 Assessment Tool: RONAK-7 Assessment 89373 Review of Systems Const Details: - Gastrointestinal: Reports diarrhea and gas associated with metformin use. - Endocrine: Reports variability in blood glucose levels, with occasional shakiness when levels are low. All systems reviewed & are unremarkable except as noted in HPI and below Physical exam (Primary Care) Vital Signs: Last Vital Signs Temp 97.1 F 05/22/25 09:16 Pulse 67 05/22/25 09:16 Resp 16 05/22/25 09:16 BP 116/78 05/22/25 09:16 Pulse Ox 96 05/22/25 09:16 Oxygen Delivery Method Room Air 05/22/25 09:16 Care Plan Goal for BP management: <140/90 at Goal BMI Assessment/Plan discussion: High BMI High, discussed plan: lifestyle, weight reduction, dietary, physical activity, alcohol moderation and other Tobacco/Smoking Status: Tobacco use Status Tobacco use date assessed 05/18/25 05/22/25 09:14 Patient Tobacco Use Status Former Tobacco user 05/22/25 09:14 PHQ-9: PHQ-9 Score PHQ-9: Total score 0 05/22/25 09:44 Depression Screening Interpretation: Negative Thrive Assessment: Date of Thrive Assessment Date Thrive assessed 05/18/25 05/22/25 09:14 Currently or been in a relationship where the following occur: No concerns reported Const Other: Appearance: Alert. Oriented X3. Appears tired. Head: Normal external exam. Normocephalic. Atraumatic. Eyes: Pupils are equal, round, and reactive to light. Extraocular movements intact. Conjunctiva and sclera normal. Eyelids normal. Throat: Pharynx normal. Uvula midline. Moist mucous membranes. Neck: Normal inspection. Neck supple. Full range of motion. Cardiovascular: Normal heart rate and rhythm. Respiratory: No respiratory distress. Painless inspiration. Back: Full range of motion noted. Skin: Skin warm and dry. Normal skin color. Normal skin turgor. No rashes/lesions/lacerations noted. Extremities: Extremities exhibit normal range of motion. Results AMB Random Glucose (hemocue) AMB Random Glucose (hemocue) 205 mg/dL Last Edit by VIVIEN Hickey on 05/22/25 09:52 Results Reviewed Results Reviewed: - Labs: Hemoglobin A1c was 12%, indicating poor glycemic control. - Labs: Total cholesterol was 244 mg/dL, LDL cholesterol was 164 mg/dL, HDL cholesterol was 39 mg/dL, and triglycerides were 205 mg/dL, indicating hyperlipidemia. Coding Level of Care Code Est Pt Level 4 (94108) Complex EM visit Add On G2211 Diagnoses Uncontrolled diabetes mellitus with hyperglycemia E11.65 GERD (gastroesophageal reflux disease) K21.9 Hyperlipidemia LDL goal <70 E78.5 Mild hypercholesterolemia E78.00 Hypertriglyceridemia E78.1 Vitamin D deficiency E55.9 Additional Codes RONAK-7 Assessment Billing - RONAK-7 Assessment Tool: RONAK-7 Assessment 26473 ([id number]) PHQ-9 - 53869 - PHQ-9 Billing: Yes ([id number]) Assessment & Plan Assessment & Plan (1) Uncontrolled diabetes mellitus with hyperglycemia: Code(s): E11.65 - Type 2 diabetes mellitus with hyperglycemia Category: Medical Plan: The patient was advised to reduce the metformin dosage to 500 mg once daily due to gastrointestinal side effects. He is to continue insulin therapy, with a focus on maintaining blood glucose levels below 180 mg/dL in the morning. A follow-up appointment is scheduled in one month to assess the patient's response to the adjusted medication regimen. (2) GERD (gastroesophageal reflux disease): Code(s): K21.9 - Gastro-esophageal reflux disease without esophagitis Category: Medical Plan: The patient is to continue taking omeprazole to manage reflux symptoms. (3) Hyperlipidemia LDL goal <70: Code(s): E78.5 - Hyperlipidemia, unspecified Category: Medical Plan: The patient is currently on atorvastatin, and there is a consideration to increase the dosage to 80 mg to better manage cholesterol levels. Although patient would like to hold off until he is stabilized on his metformin and insulin regimen for the month. Dietary modifications to reduce sugar intake were discussed as part of the management plan. (4) Mild hypercholesterolemia: Code(s): E78.00 - Pure hypercholesterolemia, unspecified Category: Medical Plan: The patient is currently on atorvastatin, and there is a consideration to increase the dosage to 80 mg to better manage cholesterol levels. Although patient would like to hold off until he is stabilized on his metformin and insulin regimen for the month. Dietary modifications to reduce sugar intake were discussed as part of the management plan. (5) Hypertriglyceridemia: Code(s): E78.1 - Pure hyperglyceridemia Category: Medical Plan: The patient is currently on atorvastatin, and there is a consideration to increase the dosage to 80 mg to better manage cholesterol levels. Although patient would like to hold off until he is stabilized on his metformin and insulin regimen for the month. Dietary modifications to reduce sugar intake were discussed as part of the management plan. (6) Vitamin D deficiency: Code(s): E55.9 - Vitamin D deficiency, unspecified Category: Medical Plan: The patient is to continue vitamin D supplementation as previously prescribed. Plan Plan Patient was informed and verbally consented to the use of an ambient scribe for clinic note documentation during this visit. 1. Type 2 Diabetes Mellitus The patient was advised to reduce the metformin dosage to 500 mg once daily due to gastrointestinal side effects. He is to continue insulin therapy, with a focus on maintaining blood glucose levels below 180 mg/dL in the morning. A follow-up appointment is scheduled in one month to assess the patient's response to the adjusted medication regimen. 2. Gastroesophageal Reflux Disease The patient is to continue taking omeprazole to manage reflux symptoms. 3. Hyperlipidemia The patient is currently on atorvastatin, and there is a consideration to increase the dosage to 80 mg to better manage cholesterol levels. Dietary modifications to reduce sugar intake were discussed as part of the management plan. 4. Vitamin D Deficiency The patient is to continue vitamin D supplementation as previously prescribed. During the visit, we discussed the management of Type 2 Diabetes Mellitus, including the reduction of metformin dosage to 500 mg once daily due to gastrointestinal side effects. We also reviewed the patient's blood glucose monitoring routine and emphasized maintaining levels below 180 mg/dL in the morning. The importance of dietary modifications to manage hyperlipidemia was highlighted, and the potential increase in atorvastatin dosage was considered. We scheduled a follow-up appointment in one month to evaluate the patient's prog ress and adjust the treatment plan as necessary. Orders: Orders AMB Random Glucose (hemocue) Today E11.9 - Type 2 diabetes mellitus without complications Medications: Changed From metformin ER (Glucophage XR) 500 mg PO BID 30 days 60 tabs 0RF To metformin ER (Glucophage XR) 500 mg PO DAILY Patient Instructions: - Take metformin 500 mg once daily to reduce gastrointestinal side effects. - Continue insulin therapy as prescribed, focusing on maintaining morning blood glucose levels below 180 mg/dL. - Continue taking omeprazole for reflux management. - Follow dietary recommendations to reduce sugar intake and manage cholesterol levels. - Return for a follow-up appointment in one month to assess treatment progress.
[2025-05-22 09:16] VITALS: BP 116/78; PULSE 67; RESP 16; TEMP 36.2; O2SAT 96
== END 2025-05-22 09:41 | disposition home or self-care (01) ==
LOC: HO.HMCSH 09:08
PROVIDERS: PCP Internal Medicine; Visit Provider Physician Assistant Medical
DX: E11.65 Type 2 diabetes mellitus with hyperglycemia (principal); K21.9 Gastro-esophageal reflux disease without esophagitis; E78.5 Hyperlipidemia, unspecified; E78.00 Pure hypercholesterolemia, unspecified; E78.1 Pure hyperglyceridemia; E55.9 Vitamin D deficiency, unspecified; E11.9 Type 2 diabetes mellitus without complications

== ENCOUNTER → 2025-05-22 09:08 | Outpatient (BNVA) | payer BC, SELFPAY | PROVIDERS: PCP Internal Medicine; Visit Provider Physician Assistant Medical | DX: E11.65 Type 2 diabetes mellitus with hyperglycemia (principal); K21.9 Gastro-esophageal reflux disease without esophagitis; E55.9 Vitamin D deficiency, unspecified; E78.00 Pure hypercholesterolemia, unspecified; E78.1 Pure hyperglyceridemia; Z79.84 Long term (current) use of oral hypoglycemic drugs | CPT/HCPCS: 82948; 96127 ==

== ENCOUNTER 2025-06-20 10:09 | Outpatient (AMB) | payer BC, SELFPAY ==
[2025-06-20 10:24] VITALS: BP 138/76; PULSE 65; RESP 16; TEMP 36.3; O2SAT 96; BMI 30.6
--- NOTE | 2025-06-20 10:24 | MHC.PC.OV ---
Vital Signs 06/20/25 10:24 Height 5 ft 7.75 in Weight 199 lb 8 oz BMI 30.6 BP 138/76 Blood Pressure Location Lt brachial Position Sitting Respiration 16 Pulse 65 Pulse Source Pulse Oximeter Temp 97.3 F Temp Source Temporal Artery Scan Pulse Oximetry (%) 96 Oxygen Delivery Method Room Air Intake Visit Reasons: 1 month follow up Accompanied by: Self / Same As Patient Allergies oxycodone (OXYCODONE) Allergy (Unknown, Verified 06/20/25 11:40) GI UPSET, stomach upset codeine Adverse Reaction (Verified 06/20/25 11:40) Unknown Medication List - Last Reconciled 06/20/25 by Stephanie Slater PA-C alcohol swabs (Alcohol Pads) 1 pad topical TIDWMEAL aspirin (Adult Low Dose Aspirin) 81 mg PO DAILY atorvastatin 40 mg PO DAILY blood sugar diagnostic (FreeStyle Lite Strips) Check glucose 3 times a day before meals blood-glucose meter (FreeStyle Lite Meter kit) Check glucose 3 times a day with meals cholecalciferol (vitamin D3) 50 mcg PO DAILY divalproex 250 mg PO DAILY insulin glargine (Basaglar KwikPen U-100 Insulin) 20 units (0.2 mL) subcut QPM lancets (FreeStyle Lancets) Check glucose 3 times a day with meals levothyroxine 25 mcg PO QAM lisinopril 40 mg PO DAILY metformin ER 500 mg PO DAILY omeprazole 40 mg PO BID pen needle, diabetic (Lilly Pen Needle) CHECK BLOOD SUGAR THREE TIMES A DAY WITH MEALS propranolol 40 mg PO DAILY rizatriptan 10 mg PO Q2-4H PRN verapamil 40 mg PO BID Tobacco use date assessed: 06/20/25 Fall risk assessment: No Falls in past year Dental Screening Dental Screen Date: 06/20/25 Did you have a dental visit in the last 12 months?: Yes HPI 1 month follow up HPI Details The patient is a 64-year-old male presenting for a diabetes recheck and cholesterol management. The patient has a history of diabetes mellitus and is currently monitoring his blood glucose levels regularly, checking four times a day, including at bedtime. He reports that his bedtime glucose levels are around 236 mg/dL, but after administering bedtime insulin, his morning levels are within the target range of 80-90 mg/dL. His recent A1c has improved from 12.0% to 10.3% over the past month, indicating progress in glycemic control. He is currently on metformin 500 mg daily had to reduced from b.i.d. due to GI upset. He is currently on glargine 20 units at bedtime. Tolerating well. Checking his glucose 3-4 times daily. The patient is also managing hyperlipidemia, with previous cholesterol levels being high despite medication. His current regimen includes atorvastatin, but he experiences muscle aches, which may be a side effect of the medication. The patient is considering alternative medications such as CoQ10 or Zetia to manage his cholesterol levels more effectively. Preventative care measures include a referral to podiatry for diabetic foot care, as the patient does not currently have a tax services specialist. He is advised to have regular foot exams to prevent complications such as infections. [facility] Medical History Hypertriglyceridemia Hyperlipidemia LDL goal <70 Uncontrolled diabetes mellitus with hyperglycemia New onset type 2 diabetes mellitus Migraine without aura Obesity Obesity (BMI 30.0-34.9) Prediabetes Peyronie's disease Vitamin D deficiency Onychomycosis Carpal tunnel syndrome Deviated septum Mild hypercholesterolemia Abdominal pain GERD (gastroesophageal reflux disease) Plantar fasciitis Tubular adenoma Migraine headache Hypothyroidism Elevated cholesterol Hypertension Surgical History H/O arthroscopy of knee H/O endoscopy H/O colonoscopy (~01/09/23) Family History Father Diabetes Mother Diabetes High blood pressure S/P triple vessel bypass Social History Housing: House Alcohol intake: current Alcohol intake frequency: holidays/special occasions only Patient Tobacco Use Status: Former Tobacco user service: Yes Current occupational status: retired Cognitive needs: No Hearing needs: No Vision needs: Yes (rx glasses) Questionnaire PHQ-9 Over the last 2 weeks, how often have you been bothered by any of the following problems? 1. Little interest or pleasure in doing things: not at all 2. Feeling down, depressed, or hopeless: not at all 3. Trouble falling or staying asleep, or sleeping too much: not at all 4. Feeling tired or having little energy: not at all 5. Poor appetite or overeating: not at all 6. Feeling bad about yourself - or that you are a failure or have let yourself or your family down: not at all 7. Trouble concentrating on things, such as reading the newspaper or watching television: not at all 8. Moving or speaking so slowly that other people could have noticed. Or the opposite - being so fidgety or restless that you have been moving around a lot more than usual: not at all 9. Thoughts that you would be better off or of hurting yourself in some way: not at all Total score: 0 Depression Screening Interpretation: Negative Depression Screening Done: Yes 79387 - PHQ-9 Billing: Yes Source: Developed by Drs. Serge Klein, Areli Good, Mekhi Beckett and colleagues, with an educational felix from [employer]. Thrive Questionnaire Date Thrive assessed: 05/18/25 RONAK-7 AMB Questionnaire RONAK-7 Date RONAK - 7 assessed: 06/20/25 Feeling nervous, anxious, or on edge: 0 = Not at all Not being able to stop or control worryin = Not at all Worrying too much about different things: 0 = Not at all Trouble relaxin = Not at all Being so restless that it is hard to sit still: 0 = Not at all Becoming easily annoyed or irritable: 0 = Not at all Feeling afraid as if something awful might happen: 0 = Not at all Total RONAK-7 score (0-4 normal; 5-9 mild; 10-14 moderate; 15-21 severe): 0 Source: Developed by Drs. Serge Klein, Areli Good, Mekhi Beckett and colleagues, with an educational felix from [employer]. RONAK-7 Assessment Billing RONAK-7 Assessment Tool: RONAK-7 Assessment 21967 Review of Systems Const Details: - Musculoskeletal: Reports muscle aches, possibly related to medication. All systems reviewed & are unremarkable except as noted in HPI and below Physical exam (Primary Care) Vital Signs: Last Vital Signs Temp 97.3 F 06/20/25 10:24 Pulse 65 06/20/25 10:24 Resp 16 06/20/25 10:24 BP 138/76 06/20/25 10:24 Pulse Ox 96 06/20/25 10:24 Oxygen Delivery Method Room Air 06/20/25 10:24 Care Plan Goal for BP management: <140/90 at Goal BMI result Body Mass Index 30.6 BMI Assessment/Plan discussion: High BMI High, discussed plan: lifestyle, weight reduction, dietary, physical activity, alcohol moderation and other Tobacco/Smoking Status: Tobacco use Status Tobacco use date assessed 06/20/25 06/20/25 10:40 Patient Tobacco Use Status Former Tobacco user 06/20/25 10:25 PHQ-9: PHQ-9 Score PHQ-9: Total score 0 06/20/25 10:43 Depression Screening Interpretation: Negative Thrive Assessment: Date of Thrive Assessment Date Thrive assessed 05/18/25 06/20/25 10:25 Const Other: Appearance: Alert. Oriented X3. No acute distress. Head: Normal external exam. Normocephalic. Atraumatic. Eyes: Pupils are equal, round, and reactive to light. Extraocular movements intact. Conjunctiva and sclera normal. Eyelids normal. Throat: Pharynx normal. Uvula midline. Moist mucous membranes. Neck: Normal inspection. Neck supple. Full range of motion. Cardiovascular: Normal heart rate and rhythm. Respiratory: No respiratory distress. Painless inspiration. Back: Full range of motion noted. Skin: Skin warm and dry. Normal skin color. Normal skin turgor. No rashes/lesions/lacerations noted. Extremities: Extremities exhibit normal range of motion. Office Procedures Flu Questionnaire Does the patient have a severe egg allergy?: No Does the patient have severe life threatening allergies?: No Does the patient have a fever or illness today?: No Has the patient ever had Guillain-[place] Syndrome?: No Has the patient ever had any past reaction to a flu shot?: No Immunizations Fluarix [id number] (PF) 45 mcg (15 mcg x 3)/0.5 mL IM syringe Performing Provider: Stephanie Slater PA-C [facility] Administered by: Iveth Alba CMA on 06/20/25 10:45 Dose Route Admin Location Dispensed Lot Number Expiration Date [facility] Vat Packer 0.5 mL IM Left Deltoid 0.5 mL [id number] 03/27/26 [id number] [email or web address] VIS Given Date VIS Provided VIS Publication Date 06/20/25 Single Vaccine 24 Eligibility Eligibility Date Funding Source Not VF Eligible 06/20/25 Private Results Reviewed Results Reviewed: - Labs: A1c improved from 12.0% to 10.3% over the past month. - Labs: Total cholesterol 244 mg/dL, LDL 164 mg/dL, triglycerides 205 mg/dL. Coding Level of Care Code Est Pt Level 4 (70138) Complex EM visit Add On G2211 Diagnoses Uncontrolled diabetes mellitus with hyperglycemia E11.65 Hyperlipidemia LDL goal <70 E78.5 Hypertriglyceridemia E78.1 Mild hypercholesterolemia E78.00 Additional Codes RONAK-7 Assessment Billing - RONAK-7 Assessment Tool: RONAK-7 Assessment 09288 ([id number]) PHQ-9 - 35128 - PHQ-9 Billing: Yes ([id number]) Assessment & Plan Assessment & Plan (1) Uncontrolled diabetes mellitus with hyperglycemia: Code(s): E11.65 - Type 2 diabetes mellitus with hyperglycemia Category: Medical Plan: The patient will continue monitoring blood glucose levels four times daily and administering bedtime insulin to maintain target glucose levels. A follow-up A1c test is scheduled for July to assess further improvement in glycemic control. Referral to podiatry for diabetic foot care is provided to prevent complications. (2) Hyperlipidemia LDL goal <70: Code(s): E78.5 - Hyperlipidemia, unspecified Category: Medical Plan: The patient is advised to consider alternative cholesterol-lowering medications such as CoQ10 or Zetia due to muscle aches associated with atorvastatin. The patient will review these options and decide on the preferred course of action. (3) Hypertriglyceridemia: Code(s): E78.1 - Pure hyperglyceridemia Category: Medical Plan: The patient is advised to consider alternative cholesterol-lowering medications such as CoQ10 or Zetia due to muscle aches associated with atorvastatin. The patient will review these options and decide on the preferred course of action. (4) Mild hypercholesterolemia: Code(s): E78.00 - Pure hypercholesterolemia, unspecified Category: Medical Plan: The patient is advised to consider alternative cholesterol-lowering medications such as CoQ10 or Zetia due to muscle aches associated with atorvastatin. The patient will review these options and decide on the preferred course of action. Plan Plan Patient was informed and verbally consented to the use of an ambient scribe for clinic note documentation during this visit. 1. Diabetes Mellitus The patient will continue monitoring blood glucose levels four times daily and administering bedtime insulin to maintain target glucose levels. A follow-up A1c test is scheduled for July to assess further improvement in glycemic control. Referral to podiatry for diabetic foot care is provided to prevent complications. 2. Hyperlipidemia The patient is advised to consider alternative cholesterol-lowering medications such as CoQ10 or Zetia due to muscle aches associated with atorvastatin. The patient will review these options and decide on the preferred course of action. During the visit, we discussed the management of diabetes and hyperlipidemia. I explained the potential side effects of atorvastatin, including muscle aches, and suggested alternatives like CoQ10 or Zetia. We also talked about the importance of regular foot exams for diabetic patients to prevent complications. The patient was advised to continue monitoring blood glucose levels and to follow up with a tax services specialist for foot care. We agreed to reassess the patient's A1c in July to evaluate progress. Orders: Orders Microalbumin, Random (w Creat) Today E11.9 - Type 2 diabetes mellitus without complications Influenza [id number] Immunization Today Z23 - Encounter for immunization UA CC w/rflx Micro + Cult Today Z00.00 - Encounter for general adult medical examination without abnormal findings Referrals Podiatry Referral E11.65 - Type 2 diabetes mellitus with hyperglycemia, E11.9 - Type 2 diabetes mellitus without complications Medications: Changed From metformin ER 500 mg PO DAILY To metformin ER 500 mg PO BID 180 tabs 3RF 90 days Patient Instructions: - Continue monitoring blood glucose levels four times daily. - Administer bedtime insulin as prescribed. - Consider alternative cholesterol medications and discuss with the doctor. - Schedule and attend a podiatry appointment for diabetic foot care. - Return for follow-up A1c test in July.
== END 2025-06-20 10:58 | disposition home or self-care (01) ==
LOC: HO.HMCSH 10:09
PROVIDERS: PCP Internal Medicine; Visit Provider Physician Assistant Medical
DX: E11.65 Type 2 diabetes mellitus with hyperglycemia (principal); E78.5 Hyperlipidemia, unspecified; E78.1 Pure hyperglyceridemia; E78.00 Pure hypercholesterolemia, unspecified; Z23 Encounter for immunization

== ENCOUNTER → 2025-06-20 10:09 | Outpatient (BNVA) | payer BC, SELFPAY | PROVIDERS: PCP Internal Medicine; Visit Provider Physician Assistant Medical | DX: E11.65 Type 2 diabetes mellitus with hyperglycemia (principal); E78.5 Hyperlipidemia, unspecified; E78.00 Pure hypercholesterolemia, unspecified; E78.1 Pure hyperglyceridemia; Z23 Encounter for immunization; Z79.4 Long term (current) use of insulin | CPT/HCPCS: 90471; 90656; 96127 ==

== ENCOUNTER 2025-08-15 09:25 | Outpatient (REF) | payer MEDICARE, BC, SELFPAY ==
[2025-08-15 13:32] LABS: Appearance Urine Clear; Glucose Urine UA Negative (Negative); PH 5.5 (5.0-9.0); Specific Gravity - Urine 1.015 (1.005-1.025)
== END 2025-08-15 09:26 | disposition home or self-care (01) ==
LOC: HO.HMGCLDS 09:25
PROVIDERS: PCP Physician Assistant Medical; Visit Provider Physician Assistant Medical
DX: Z00.00 Encounter for general adult medical examination without abnormal findings (principal); E11.9 Type 2 diabetes mellitus without complications
CPT/HCPCS: 81003; 82043; 82570

== ENCOUNTER 2025-08-17 09:53 | Outpatient (AMB) | payer MEDICARE, BC, SELFPAY ==
[2025-08-17 10:12] VITALS: BP 118/56; PULSE 68; RESP 12; TEMP 36.4; O2SAT 96; BMI 30.6
--- NOTE | 2025-08-17 10:12 | A.OFFPC_ITS ---
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 Accompanied by: Self / Same As Patient Allergies oxycodone (OXYCODONE) Allergy (Unknown, Verified 08/17/25 10:43) GI UPSET, stomach upset codeine Adverse Reaction (Verified 08/17/25 10:43) Unknown Medication List - Last Reconciled 08/17/25 by Stephanie Slater PA-C alcohol swabs (Alcohol Prep Pads) 1 pad topical TID aspirin (Adult Low Dose Aspirin) 81 mg PO DAILY atorvastatin 40 mg PO DAILY blood sugar diagnostic (FreeStyle Lite Strips) Check glucose 3 times a day before meals blood-glucose meter (FreeStyle Lite Meter kit) Check glucose 3 times a day with meals cholecalciferol (vitamin D3) 50 mcg PO DAILY divalproex 250 mg PO DAILY insulin glargine (Basaglar KwikPen U-100 Insulin) 20 units (0.2 mL) subcut QPM lancets (FreeStyle Lancets) Check glucose 3 times a day with meals levothyroxine 25 mcg PO QAM lisinopril 40 mg PO DAILY metformin ER 500 mg PO DAILY omeprazole 40 mg PO BID pen needle,diabetic, disp unit (UltiGuard SafePack-Pen Needle) USE TO INJECT 3 TIMES A DAY propranolol 40 mg PO DAILY 90 days rizatriptan 10 mg PO Q2-4H PRN Tobacco use date assessed: 06/20/25 Dental Screening Dental Screen Date: 06/20/25 HPI HPI Comments History of Present Illness Details History of Present Illness The patient is a 65 year old individual presenting for a follow-up visit for management of type 2 diabetes mellitus. The patient has shown significant improvement in glycemic control, with an HbA1c level reduction from 12% to 6.6%. The current medication regimen includes glargine insulin 20 units at bedtime and metformin extended release 500 mg, which was reduced from twice daily to once daily due to gastrointestinal side effects. Home blood glucose monitoring shows values such as 91 mg/dL in the morning, with readings around 112 mg/dL in the mid-afternoon, and occasional higher readings up to 188 mg/dL before bedtime. A urine test in July was negative for microalbumin, protein, blood, and glucose. The patient has a strong family history of diabetes, with both grandmothers, both parents, a brother, and a sister also having the condition. The patient has a podiatry appointment scheduled for August 28 and reports undergoing annual ophthalmology evaluations. [facility] [place] Medical History (Updated 08/17/25 @ 10:46 by Stephanie Slater PA-C) Preventative health care Type 2 diabetes mellitus with hemoglobin A1c goal of less than 7.0% Hypertriglyceridemia Hyperlipidemia LDL goal <70 Uncontrolled diabetes mellitus with hyperglycemia New onset type 2 diabetes mellitus Migraine without aura Obesity Obesity (BMI 30.0-34.9) Prediabetes Peyronie's disease Vitamin D deficiency Onychomycosis Carpal tunnel syndrome Deviated septum Mild hypercholesterolemia Abdominal pain GERD (gastroesophageal reflux disease) Plantar fasciitis Tubular adenoma Migraine headache Hypothyroidism Elevated cholesterol Hypertension Surgical History H/O arthroscopy of knee H/O endoscopy H/O colonoscopy (~01/09/23) Family History Father Diabetes Mother Diabetes High blood pressure S/P triple vessel bypass Social History Housing: House Alcohol intake: current Alcohol intake frequency: holidays/special occasions only Patient Tobacco Use Status: Former Tobacco user service: Yes Current occupational status: retired Cognitive needs: No Hearing needs: No Vision needs: Yes (rx glasses) Questionnaire PHQ-9 Over the last 2 weeks, how often have you been bothered by any of the following problems? 1. Little interest or pleasure in doing things: not at all 2. Feeling down, depressed, or hopeless: not at all 3. Trouble falling or staying asleep, or sleeping too much: not at all 4. Feeling tired or having little energy: not at all 5. Poor appetite or overeating: not at all 6. Feeling bad about yourself - or that you are a failure or have let yourself or your family down: not at all 7. Trouble concentrating on things, such as reading the newspaper or watching television: not at all 8. Moving or speaking so slowly that other people could have noticed. Or the opposite - being so fidgety or restless that you have been moving around a lot more than usual: not at all 9. Thoughts that you would be better off or of hurting yourself in some way: not at all Total score: 0 Depression Screening Interpretation: Negative Depression Screening Done: Yes 47687 - PHQ-9 Billing: Yes Source: Developed by Drs. Serge Klein, Areli Good, Mekhi Beckett and colleagues, with an educational felix from [employer]. Thrive Questionnaire Date Thrive assessed: 05/18/25 I am a: Patient What is your living situation today?: I have a steady place to live Within the past 12 months, did the food you bought not last and you didn't have the money to get more?: Never true Within the past 12 months, did you worry whether your food would run out before you got money to buy more?: Never true Do you have trouble paying for medicines?: No Do you have trouble getting transportation to medical appointments?: No Do you have trouble paying your heating and electricity bill?: No Do you have trouble taking care of your child, family member or friend?: No Do you have trouble with day-to-day activities such as bathing, preparing meals, shopping, managing finances, etc.?: No Are you currently unemployed and looking for a job?: No Are you interested in more education?: No Please select the resources that you would like help with: None Currently or been in a relationship where the following occur: No concerns reported THRIVE Score: 0 AUDIT C Alcohol Use Questionnaire (AUDIT-C) 1. How often do you have a drink containing alcohol?: Monthly or less 2. How many drinks containing alcohol do you have on a typical day when you are drinking?: 1 or 2 3. How often do you have six or more drinks on one occasion?: Never Total Score: 1 Score Reviewed/Action Taken: No RONAK-7 AMB Questionnaire RONAK-7 Date RONAK - 7 assessed: 06/20/25 Feeling nervous, anxious, or on edge: 0 = Not at all Not being able to stop or control worryin = Not at all Worrying too much about different things: 0 = Not at all Trouble relaxin = Not at all Being so restless that it is hard to sit still: 0 = Not at all Becoming easily annoyed or irritable: 0 = Not at all Feeling afraid as if something awful might happen: 0 = Not at all Total RONAK-7 score (0-4 normal; 5-9 mild; 10-14 moderate; 15-21 severe): 0 Source: Developed by Drs. Serge Klein, Areli Good, Mekhi Beckett and colleagues, with an educational felix from [employer]. RONAK-7 Assessment Billing RONAK-7 Assessment Tool: RONAK-7 Assessment 30387 Review of Systems Narrative Review of Systems - Extremities: Reports some swelling in the feet. - Gastrointestinal: Reports gastrointestinal upset with twice-daily metformin. Const All systems reviewed & are unremarkable except as noted in HPI and below Physical exam (Primary Care) Vital Signs: Last Vital Signs Temp 97.6 F 08/17/25 10:12 Pulse 68 08/17/25 10:12 Resp 12 08/17/25 10:12 BP 118/56 L 08/17/25 10:12 Pulse Ox 96 08/17/25 10:12 Oxygen Delivery Method Room Air 08/17/25 10:12 Care Plan Goal for BP management: <140/90 at Goal BMI result Body Mass Index 30.6 BMI Assessment/Plan discussion: High BMI High, discussed plan: lifestyle, weight reduction, dietary, physical activity, alcohol moderation and other Tobacco/Smoking Status: Tobacco use Status Tobacco use date assessed 06/20/25 08/17/25 10:22 Patient Tobacco Use Status Former Tobacco user 08/17/25 10:22 PHQ-9: PHQ-9 Score PHQ-9: Total score 0 08/17/25 10:34 Depression Screening Interpretation: Negative Thrive Assessment: Date of Thrive Assessment Date Thrive assessed 05/18/25 08/17/25 10:22 Currently or been in a relationship where the following occur: No concerns reported Narrative Physical Exam Appearance: Alert. Oriented X3. No acute distress. Head: Normal external exam. Normocephalic. Atraumatic. Eyes: Pupils are equal, round, and reactive to light. Extraocular movements intact. Conjunctiva and sclera normal. Eyelids normal. Throat: Pharynx normal. Uvula midline. Moist mucous membranes. Neck: Normal inspection. Neck supple. Full range of motion. Cardiovascular: Normal heart rate and rhythm. Respiratory: No respiratory distress. Painless inspiration. Back:Full range of motion noted. Skin: Skin warm and dry. Normal skin color. Extremities: Extremities exhibit normal range of motion. Results AMB Hemoglobin A1c AMB Hemoglobin A1c 6.6 % Last Edit by VIVIEN Hickey on 08/17/25 10:34 Results Reviewed Results Reviewed: Laboratory Last Values Hgb A1c (Clinic) 6.6 % (4.0-6.0) H 08/17/25 10:23 Results - Labs: HbA1c was 6.6%, improved from 12%. - Labs: A urine test in July for protein, blood, and glucose was negative. - Labs: Urine microalbumin was negative. - Home Monitoring: Blood glucose levels range from 91 mg/dL in the morning to as high as 188 mg/dL before bed. Coding Level of Care Code Est Pt Level 4 (12714) Complex EM visit Add On G2211 Diagnoses Type 2 diabetes mellitus with hemoglobin A1c goal of less than 7.0% E11.9 Preventative health care Z00.00 Additional Codes RONAK-7 Assessment Billing - RONAK-7 Assessment Tool: RONAK-7 Assessment 40903 ([id number]) PHQ-9 - 94749 - PHQ-9 Billing: Yes ([id number]) Assessment & Plan Assessment & Plan (1) Type 2 diabetes mellitus with hemoglobin A1c goal of less than 7.0%: Code(s): E11.9 - Type 2 diabetes mellitus without complications Category: Medical Plan: The patient's diabetes is well-controlled, evidenced by a significant reduction in HbA1c from 12% to 6.6% and generally stable home blood glucose readings. The current regimen consists of glargine 20 units at bedtime and metformin 500 mg once daily, which was reduced from twice daily due to gastrointestinal side effects. The plan is to continue the current medication regimen without changes due to its effectiveness. The importance of adherence to the insulin was emphasized. The patient has adequate supplies of medications and needles. A follow-up visit is scheduled in three months. (2) Preventative health care: Code(s): Z00.00 - Encounter for general adult medical examination without abnormal findings Category: Medical Plan: Due to the patient's diabetes diagnosis, several preventative measures were discussed. Administration of the pneumococcal vaccine was recommended. A referral to podiatry for a diabetic foot exam has been made, and the patient has an appointment scheduled for August 28. The patient will continue with annual ophthalmology exams for diabetic eye screening. Plan Plan Patient was informed and verbally consented to the use of an ambient scribe for clinic note documentation during this visit. 1. Type 2 Diabetes Mellitus The patient's diabetes is well-controlled, evidenced by a significant reduction in HbA1c from 12% to 6.6% and generally stable home blood glucose readings. The current regimen consists of glargine 20 units at bedtime and metformin 500 mg once daily, which was reduced from twice daily due to gastrointestinal side effects. The plan is to continue the current medication regimen without changes due to its effectiveness. The importance of adherence to the insulin was emphasized. The patient has adequate supplies of medications and needles. A follow-up visit is scheduled in three months. 2. Preventative Care Due to the patient's diabetes diagnosis, several preventative measures were discussed. Administration of the pneumococcal vaccine was recommended. A referral to podiatry for a diabetic foot exam has been made, and the patient has an appointment scheduled for August 28. The patient will continue with annual ophthalmology exams for diabetic eye screening. Discussion Notes I praised the patient for the excellent progress in managing the diabetes, noting the significant improvement in the HbA1c from 12% to 6.6%. We discussed that the current regimen of glargine 20 units at bedtime and metformin 500 mg once daily is working effectively and should be continued without change. I emphasized that while missing the metformin dose is acceptable on occasion, daily adherence to the insulin is critical. I reviewed preventative care measures, recommending the pneumococcal vaccine. I confirmed the patient has an upcoming podiatry appointment for August 28 and continues with annual ophthalmology exams. I also informed the patient that the recent urine studies were reassuringly normal. We agreed to a follow-up appointment in three months to continue monitoring. Orders: Orders AMB Hemoglobin A1c Today Z13.9 - Encounter for screening, unspecified Patient Instructions: Patient Instructions - Continue taking your insulin glargine (20 units) at bedtime every day. Do not forget to take your insulin. - Continue taking your metformin pill (500 mg) once a day. - You are doing a great job managing your blood sugars. Keep up the good work. - You should get the pneumonia vaccine (pneumococcal shot). - Make sure to go to your foot doctor (podiatry) appointment on August 28. - Continue to see your eye doctor every year. - You have enough medication and testing supplies for now. Please let us know when you are running low. - We will see you back in the office in 3 months.
== END 2025-08-17 10:41 | disposition home or self-care (01) ==
LOC: HO.HMCSH 09:53
PROVIDERS: PCP Physician Assistant Medical; Visit Provider Physician Assistant Medical
DX: E11.9 Type 2 diabetes mellitus without complications (principal); Z00.00 Encounter for general adult medical examination without abnormal findings; Z13.9 Encounter for screening, unspecified

== ENCOUNTER → 2025-08-17 09:53 | Outpatient (BNVA) | payer MEDICARE, BC, SELFPAY | PROVIDERS: PCP Physician Assistant Medical; Visit Provider Physician Assistant Medical | DX: E11.9 Type 2 diabetes mellitus without complications (principal); Z13.31 Encounter for screening for depression | CPT/HCPCS: 83036; 96127; 99212 ==

== ENCOUNTER 2025-09-06 10:10 | Outpatient (AMB) | payer MEDICARE, BC, SELFPAY ==
--- NOTE | 2025-09-06 10:14 | MHC.OFFWIV ---
Intake Vital Signs 09/06/25 10:15 Height 5 ft 7.5 in Weight 195 lb BMI 30.1 BP 120/82 Blood Pressure Location Lt brachial Position Sitting Pulse 69 Pulse Source Pulse Oximeter Pulse Oximetry (%) 96 Oxygen Delivery Method Room Air Intake Visit Reasons: Ep pain in rt shoulder Intake Note: Patient presents c/o right shoulder pain x1 week. Patient Tobacco Use Status: Former Tobacco user Allergies oxycodone (OXYCODONE) Allergy (Unknown, Verified 09/06/25 10:16) GI UPSET, stomach upset codeine Adverse Reaction (Verified 09/06/25 10:16) Unknown HPI HPI Comments History of Present Illness Details This is a 65-year-old male with a past medical history of insulin-dependent diabetes, hyperlipidemia, gastroesophageal reflux disease, hypertension and hypothyroidism presenting for evaluation of posterior right shoulder pain that he has had for the past 6 days. Patient states the pain radiates at times into the right side of his neck but does not radiate into his right arm. Patient denies any injury or trauma preceding the onset of his symptoms however states that he did a lot of snow removal the day before the onset of his pain. Patient denies having a headache, pain in his right arm, chest pain, cough or shortness for breath. Patient has used both cold packs and a heating pad as well as Tylenol and Advil intermittently without relief of his discomfort. [facility] Medical History (Updated 09/06/25 @ 10:37 by Lia Upton PA-C) Preventative health care Type 2 diabetes mellitus with hemoglobin A1c goal of less than 7.0% Hypertriglyceridemia Hyperlipidemia LDL goal <70 Uncontrolled diabetes mellitus with hyperglycemia New onset type 2 diabetes mellitus Migraine without aura Obesity Obesity (BMI 30.0-34.9) Prediabetes Peyronie's disease Vitamin D deficiency Onychomycosis Carpal tunnel syndrome Deviated septum Mild hypercholesterolemia Abdominal pain GERD (gastroesophageal reflux disease) Plantar fasciitis Tubular adenoma Migraine headache Hypothyroidism Elevated cholesterol Hypertension Surgical History H/O arthroscopy of knee H/O endoscopy H/O colonoscopy (~01/09/23) Family History Father Diabetes Mother Diabetes High blood pressure S/P triple vessel bypass Social History Housing: House Alcohol intake: current Alcohol intake frequency: holidays/special occasions only Patient Tobacco Use Status: Former Tobacco user service: Yes Current occupational status: retired Cognitive needs: No Hearing needs: No Vision needs: Yes (rx glasses) Review of Systems Const All systems reviewed & are unremarkable except as noted in HPI and below Reports no additional complaints, Denies chills, Denies fatigue, Denies fever(s), Denies lethargy and Denies malaise Eyes Reports no additional complaints ENT Reports no additional complaints and Reports neck pain Card Reports no additional complaints, Denies chest pain and Denies dyspnea Resp Denies cough and Denies dyspnea GI Denies nausea and Denies vomiting Reports no additional complaints Musc Reports arthralgias (posterior right shoulder pain), Denies limited range of motion and Reports neck pain Skin/Breast Reports system reviewed and no additional complaints, except as documented Neuro Reports no additional complaints Psych Reports no additional complaints Endo Reports no additional complaints and Denies fatigue Mario/Lymph Reports no additional complaints Physical Exam Const General: cooperative, healthy appearing, comfortable, no acute distress, well developed, alert, awake, Physically active and well groomed; No acute distress or ill appearing Nutritional Appearance: average body habitus Orientation/consciousness: patient oriented x3 Limitations: no limitations Cardio Rate: regular rate Rhythm: regular rhythm Back/Spine/Pelvis Cervical Spine: normal cervical lordosis, cervical ROM normal, No cervical muscular tenderness, No pain with cervical ROM, No Cervical spine tenderness and other (no right SCM tenderness) Thoracic/Lumbar Spine: paraspinal muscle tenderness on the right in the upper thoracic, No thoraco-lumbar spasm and No thoracic spinal tenderness Skin General skin exam: no rashes or lesions noted Neuro General: patient oriented x3 Extrem Other: There is pain to palpation of the right medial trapezius musculature, no pain to palpation of the right scapula, ROM intact right upper extremity, no right clavicular tenderness. Right upper extremity: full ROM and shoulder/upper arm Details: normal to inspection and tenderness (right medial trapezius) Psych Appearance: grossly normal Mental Status: mental status grossly normal Insight: Good insight present (Psych) Judgement: Good judgement present (Psych) Assessment & Plan Assessment & Plan (1) Strain of right trapezius muscle: Comment: Patient's tenderness is reproducible upon examination for itching is deferred at this time. Patient will be discharged home with anti-inflammatory and muscle relaxant. Code(s): S46.811A - Strain of other muscles, fascia and tendons at shoulder and upper arm level, right arm, initial encounter Qualifiers: Encounter type: initial encounter Qualified Code(s): S46.811A - Strain of other muscles, fascia and tendons at shoulder and upper arm level, right arm, initial encounter Plan: Naprosyn 500 mg b.i.d., methocarbamol 750 mg q.8 hours, physical therapy referral is placed. Patient is instructed to follow up with his primary care provider as an outpatient. Orders: Orders PT Evaluation and Treatment Today S46.811A - Strain of other muscles, fascia and tendons at shoulder and upper arm level, right arm, initial encounter Medications: New methocarbamol 750 mg PO Q8H 30 tabs 0RF naproxen (Naprosyn) 500 mg PO BID 20 tabs 0RF Coding Level of Care Code Est Pt Level 3 (94897) Diagnoses Strain of right trapezius muscle, initial encounter S46.811A Encounter type: initial encounter Time Spent (min) 20
[2025-09-06 10:15] VITALS: BP 120/82; PULSE 69; O2SAT 96; BMI 30.1
== END 2025-09-06 10:35 | disposition home or self-care (01) ==
PROVIDERS: PCP Physician Assistant Medical; Visit Provider Physician Assistant
DX: S46.811A Strain of other muscles, fascia and tendons at shoulder and upper arm level, right arm, initial encounter (principal)

== ENCOUNTER → 2025-09-06 10:10 | Outpatient (BNVA) | payer MEDICARE, BC, SELFPAY | PROVIDERS: PCP Physician Assistant Medical; Visit Provider Physician Assistant | DX: S46.811A Strain of other muscles, fascia and tendons at shoulder and upper arm level, right arm, initial encounter (principal); X58.XXXA Exposure to other specified factors, initial encounter; Y93.9 Activity, unspecified; Y92.9 Unspecified place or not applicable; E11.9 Type 2 diabetes mellitus without complications; Z79.4 Long term (current) use of insulin | CPT/HCPCS: 99212 ==